=== PATIENT | female | born 1985 | race Hispanic/Latino ===

== ENCOUNTER 2016-07-15 15:50 | Emergency (ER) | payer MEDICAID ==
--- NOTE | 2016-07-15 16:56 | XRay Report ---
ROUTINE CHEST, TWO VIEWS: Shortness of breath. This is minimal atelectasis appearing density adjacent to the left cardiac margin. This is only seen in the frontal projection. The findings are not otherwise remarkable. Impression: Probable focal atelectasis lingular segment left upper lobe.
[2016-07-15 17:34] LABS: Anion Gap 17 mmol/L; BUN/Creatinine Ratio 12.85; Blood Urea Nitrogen 9 mg/dL (7-17); Calcium 9.5 mg/dL (8.4-10.2); Carbon Dioxide 24 mmol/L (22-30); Chloride 103.9 mmol/L (98-107); Glucose 115 mg/dL (65-100); Potassium 3.8 mmol/L (3.6-5.0); Sodium 141 mmol/L (137-145)
[2016-07-15 17:36] LABS: Hematocrit 40.7 % (30.3-42.9); Hemoglobin 13.4 gm/dl (10.1-14.3); Mean Corpuscular HGB Conc 33 % (30-34); Mean Corpuscular Hemoglobin 28 pg (28-32); Mean Corpuscular Volume 86 fl (79-97); Platelet Count 249 K/mm3 (140-440); Red Blood Count 4.74 M/mm3 (3.65-5.03); Red Cell Distribution Width 13.5 % (13.2-15.2); White Blood Count 11.6 K/mm3 (4.5-11.0)
[2016-07-15] MEDS ORDERED: DUONEB 0.5 MG-3 MG/3 ML SOLN IH ONE (23:48)
--- NOTE | 2016-07-15 23:53 | Emergency Department Report ---
HPI - General Chief Complaint: Chest Pain Time Seen by Provider: 07/15/16 23:32 - HPI HPI: This is a 31-year-old female who presents to the emergency department with a one-week history of intermittent generalized chest pain to the entire chest. It is associated with a mixed dry and productive cough, intermittent shortness of breath and some chills without diagnosed fever. The patient has been dealing with some of the symptoms for even longer as she was seen by her primary care doctor back on the , and then again a week later, and diagnosed with walking pneumonia. She was given an inhaler and Z-Kareem at that time but says she is not feeling any better. However the symptoms worsened over the past week. She has a past medical history of asthma and she is a tobacco smoker. She denies any illicit drug use. She is not taking anything currently for her symptoms prior to presentation. No recent travel or sick contacts at home. Her primary care doctor is Dr. Deirdre Lawrence at [facility]. ED Past Medical Hx - Past Medical History Hx GERD: Yes Hx Seizures: No Hx Psychiatric Treatment: Yes (DEPRESSION) Hx Asthma: Yes Additional medical history: H. pylori - Surgical History Hx Cholecystectomy: Yes Additional Surgical History: hemorrhoidectomy - Social History Smoking Status: Current Every Day Smoker Substance Use Type: Prescribed - Medications Home Medications: Home Medications Medication Instructions Recorded Confirmed Last Taken Type Loratadine [Claritin] 10 mg PO QDAY 05/17/13 10/03/14 05/30/13 History 10MG Nortriptyline [Pamelor] 75 mg PO QHS 05/17/13 10/03/14 05/30/13 History 75MG Acetaminophen/Codeine [Tylenol #3] 1 tab PO Q6H PRN #15 tab 10/04/14 Unknown Rx Tramadol HCl [traMADol] 50 mg PO Q8HR #15 tablet 10/04/14 Unknown Rx Albuterol Sulfate [Ventolin HFA] 2 puff IH Q4H PRN #1 hfa.aer.ad 07/16/16 Unknown Rx guaiFENesin/CODEINE [Robitussin AC] 5 ml PO Q6H PRN #80 ml 07/16/16 Unknown Rx ED Review of Systems ROS: Stated complaint: CHEST PAIN/OLIVIER Other details as noted in HPI Comment: All other systems reviewed and negative Constitutional: chills. denies: fever Eyes: denies: eye pain, eye discharge, vision change ENT: denies: ear pain, throat pain Respiratory: cough, shortness of breath Cardiovascular: chest pain. denies: palpitations, edema Gastrointestinal: denies: abdominal pain, nausea, diarrhea Genitourinary: denies: urgency, dysuria, discharge Musculoskeletal: denies: back pain, joint swelling, arthralgia Skin: denies: rash, lesions Neurological: denies: headache, weakness, paresthesias Physical Exam - Physical Exam Vital Signs: Vital Signs 07/15/16 16:15 Temperature 98.7 F Pulse Rate 102 H Respiratory 20 Rate Blood Pressure 133/84 O2 Sat by Pulse 99 Oximetry Physical Exam: GENERAL: The patient is well-developed well-nourished. HEENT: Normocephalic. Atraumatic. Extraocular motions are intact. Patient has moist mucous membranes. Pupils equal reactive to light bilaterally. NECK: Supple. Trachea is midline. CHEST/LUNGS: Mild expiratory wheezing throughout the chest. A productive any cough heard during examination. No tachypnea or accessory muscle use. There is no respiratory distress noted. HEART/CARDIOVASCULAR: Regular. There is no tachycardia. There is no gallop rub or murmur. ABDOMEN: Abdomen is soft, nontender. Patient has normal bowel sounds. There is no abdominal distention. SKIN: Skin is warm and dry. There is no edema. NEURO: The patient is awake, alert, and oriented. The patient is cooperative. The patient has no focal neurologic deficits. The patient has normal speech. MUSCULOSKELETAL: There is no tenderness or deformity. There is no limitation range of motion. There is no evidence of acute injury. ED Course Vital Signs 07/15/16 16:15 Temperature 98.7 F Pulse Rate 102 H Respiratory 20 Rate Blood Pressure 133/84 O2 Sat by Pulse 99 Oximetry ED Medical Decision Making - Lab Data Result diagrams: 07/15/16 17:00 07/15/16 17:00 - EKG Data -: EKG Interpreted by Me EKG shows normal: sinus rhythm, axis, intervals, QRS complexes (incomplete right bundle branch block), ST-T waves - EKG Data When compared to previous EKG there are: no significant change Interpretation: unchanged when compared t (02/23/14) - Radiology Data Radiology results: image reviewed interpreted by me: Chest x-ray did not show any acute process. Heart is normal shape and size. No effusions. No pneumothorax. No signs of pneumonia seen. - Medical Decision Making 31-year-old female presents the emergency department with about 2-3 weeks of cough and some chest discomfort. This is been going on even since the patient was diagnosed with walking pneumonia and for. She is already been on antibiotics and seen her primary care regarding it. Patient was evaluated today with physical exam, labs, imaging EKG. EKG does not show any signs of ST elevation IL, dysrhythmia or ischemia. Chest x-ray does not show any signs of pneumonia, pleural effusions or pneumothorax. Patient's labs show negative troponins 3 and a negative d-dimer. She was given a breathing treatment, a dose of Decadron and something for discomfort. Upon reevaluation she is feeling improved. Patient has a GIANNI score of 0-1. She is very low on the heart score. She appears low suspicion for coronary artery disease. She has good follow-up with primary care. She'll be discharged home with some Robitussin-AC for cough and a refill of her albuterol inhaler. She will return to the ER with any worsening of her symptoms or any acute distress. HEART Score for Major Cardiac Events from [email or web address] on 07/16/2016 All calculations should be rechecked by clinician prior to use RESULT SUMMARY: 0 points Low Score (0-3 points) Risk of MACE of 0.9-1.7%. INPUTS: History > Slightly suspicious EKG > Normal Age > < 45 Risk factors > No known risk factors Troponin > normal limit - Differential Diagnosis costochondritis, bronchitis, asthma, pneumonia, IL, PE Critical Care Time: No Critical care attestation.: If time is entered above; I have spent that time in minutes in the direct care of this critically ill patient, excluding procedure time. ED Disposition Clinical Impression: Bronchitis, Bronchospasm, Costochondritis Disposition: DISCHARGED TO HOME OR SELFCARE Is pt being admited?: No Condition: Stable Instructions: Acute Bronchitis (ED) Additional Instructions: Please follow-up with your primary care doctor in the next few days. Return to the emergency department with any worsening of your symptoms or any acute distress. You've been prescribed a medication that is sedating. Therefore this medication cannot be mixed with alcohol, or taken prior to driving, working, or being responsible for children. Prescriptions: Albuterol Sulfate [Ventolin HFA] 2 puff IH Q4H PRN #1 hfa.aer.ad PRN Reason: Shortness Of Breath guaiFENesin/CODEINE [Robitussin AC] 5 ml PO Q6H PRN #80 ml PRN Reason: Cough Referrals: PRIMARY CARE, [Primary Care Provider] - 3-5 Days Time of Disposition: 01:48
[2016-07-16] MEDS ORDERED: NORCO 5/325 PO ONE (00:44)
[2016-07-16 01:48] VITALS: BP 138/81
[2016-07-16] MEDS ORDERED: DECADRON PO ONE (01:48)
== END 2016-07-16 02:02 | disposition home or self-care (01) ==
LOC: ED 15:50
DX: J40 Bronchitis, not specified as acute or chronic (principal); J98.01 Acute bronchospasm; M94.0 Chondrocostal junction syndrome [Tietze]; K21.9 Gastro-esophageal reflux disease without esophagitis; F32.9 Major depressive disorder, single episode, unspecified; J45.909 Unspecified asthma, uncomplicated; F17.200 Nicotine dependence, unspecified, uncomplicated; Z88.0 Allergy status to penicillin
CPT/HCPCS: 36415; 71020; 80048; 84484; 84703; 85025; 85379; 93005; 93010; 99285; J8540

== ENCOUNTER 2018-10-09 15:40 | Emergency (ER) | payer MEDICAID ==
--- NOTE | 2018-10-09 15:54 | Event Note ---
ED Screening Note ED Screening Note: DYSURIA AND FOOT PAIN IN BOOT This initial assessment/diagnostic orders/clinical plan/treatment(s) is/are diez bject to change based on patients health status, clinical progression and re- assessment by fellow clinical providers in the ED. Further treatment and workup at subsequent clinical providers discretion. Patient/guardian urged not to elope from the ED as their condition may be serious if not clinically assessed and managed. Initial orders include:
[2018-10-09] MEDS ORDERED: TYLENOL #3 ONE (20:18)
[2018-10-09] MEDS ORDERED: TYLENOL #3 PO ONE (20:19)
--- NOTE | 2018-10-09 21:22 | XRay Report ---
PROCEDURE: XR FOOT 3+V RT TECHNIQUE: Right foot radiographs, AP, lateral, and oblique views. HISTORY: right lateral foot pain COMPARISONS: None . FINDINGS: Fracture (s) and/or Dislocation(s): None . Alignment: Normal . Joint space(s): Normal . Soft tissues: Normal . Bone mineralization: Normal . Foreign bodies: None . Calcaneal spurring: None . IMPRESSION: Normal Examination . This document is electronically signed by Mariangel Graham MD., October 09 2018 09:20:25 PM ET
[2018-10-09 21:28] LABS: HCG Qualitative,Urine Negative (Negative)
[2018-10-09 21:30] LABS: Bilirubin,Urine NEG (Negative); Blood,Urine SM (Negative); Color,Urine Yellow (Yellow); Mucus,Urine FEW /HPF; Protein,Urine <15 mg/dL mg/dL (Negative); Urobilinogen,Urine < 2.0 mg/dL (<2.0)
--- NOTE | 2018-10-09 22:16 | Emergency Department Report ---
ED Lower Extremity HPI - General Chief Complaint: Extremity Problem,Nontraumatic Stated Complaint: FOOT PAIN Time Seen by Provider: 10/09/18 15:54 Source: patient Mode of arrival: Ambulatory Limitations: No Limitations - History of Present Illness Initial Comments: 33-year-old female is metformin complaining of a 2 to three-week history of atraumatic right foot pain. She was initially evaluated at the [facility] and given Benjamin wrap, walking boot and some pain medication. She states this continued pain symptoms most department seeking further evaluation. She states that no x-rays were taken, so she wanted to make sure it was not broken MD Complaint: foot injury -: Gradual, week(s) (2) Injury: Foot: Right Place: home Severity: mild Improves With: nothing Worsens With: nothing Associated Symptoms: able to partially bear weight. denies: numbness, tingling - Related Data Home Medications Medication Instructions Recorded Confirmed Last Taken Loratadine [Claritin] 10 mg PO QDAY 05/17/13 10/03/14 05/30/13 10MG Nortriptyline (Nf) [Pamelor (Nf)] 75 mg PO QHS 05/17/13 10/03/14 05/30/13 75MG Previous Rx's Medication Instructions Recorded Last Taken Type Acetaminophen/Codeine [Tylenol #3] 1 tab PO Q6H PRN #15 tab 10/04/14 Unknown Rx Tramadol HCl [traMADol] 50 mg PO Q8HR #15 tablet 10/04/14 Unknown Rx Albuterol Sulfate [Ventolin HFA] 2 puff IH Q4H PRN #1 hfa.aer.ad 07/16/16 Unknown Rx guaiFENesin/CODEINE [Robitussin AC] 5 ml PO Q6H PRN #80 ml 07/16/16 Unknown Rx traMADol [Ultram] 50 mg PO Q6HR PRN #10 tablet 10/09/18 Unknown Rx Allergies Allergy/AdvReac Type Severity Reaction Status Date / Time Penicillins Allergy Rash Verified 10/09/18 20:34 ibuprofen [From Motrin] AdvReac Swelling Verified 10/09/18 20:33 ED Review of Systems ROS: Stated complaint: FOOT PAIN Other details as noted in HPI Constitutional: denies: chills, fever Eyes: denies: eye pain, eye discharge, vision change ENT: denies: ear pain, throat pain Respiratory: denies: cough, shortness of breath, wheezing Cardiovascular: denies: chest pain, palpitations Endocrine: no symptoms reported Gastrointestinal: denies: abdominal pain, nausea, diarrhea Genitourinary: denies: urgency, dysuria, discharge Musculoskeletal: denies: back pain, joint swelling, arthralgia Skin: denies: rash, lesions Neurological: denies: headache, weakness, paresthesias Psychiatric: denies: anxiety, depression Hematological/Lymphatic: denies: easy bleeding, easy bruising ED Past Medical Hx - Past Medical History Previous Medical History?: Yes Hx GERD: Yes Hx Seizures: No Hx Psychiatric Treatment: Yes (DEPRESSION) Hx Asthma: Yes Additional medical history: H. pylori - Surgical History Past Surgical History?: Yes Hx Cholecystectomy: Yes Additional Surgical History: hemorrhoidectomy - Social History Smoking Status: Current Every Day Smoker Substance Use Type: Prescribed - Medications Home Medications: Home Medications Medication Instructions Recorded Confirmed Last Taken Type Loratadine [Claritin] 10 mg PO QDAY 05/17/13 10/03/14 05/30/13 History 10MG Nortriptyline (Nf) [Pamelor (Nf)] 75 mg PO QHS 05/17/13 10/03/14 05/30/13 History 75MG Acetaminophen/Codeine [Tylenol #3] 1 tab PO Q6H PRN #15 tab 10/04/14 Unknown Rx Tramadol HCl [traMADol] 50 mg PO Q8HR #15 tablet 10/04/14 Unknown Rx Albuterol Sulfate [Ventolin HFA] 2 puff IH Q4H PRN #1 hfa.aer.ad 07/16/16 Unknown Rx guaiFENesin/CODEINE [Robitussin AC] 5 ml PO Q6H PRN #80 ml 07/16/16 Unknown Rx traMADol [Ultram] 50 mg PO Q6HR PRN #10 tablet 10/09/18 Unknown Rx ED Physical Exam - General Limitations: No Limitations General appearance: alert, in no apparent distress - Head Head exam: Present: atraumatic, normocephalic - Eye Eye exam: Present: normal appearance, PERRL, EOMI Pupils: Present: normal accommodation - ENT ENT exam: Present: mucous membranes moist - Neck Neck exam: Present: normal inspection - Respiratory Respiratory exam: Present: normal lung sounds bilaterally. Absent: respiratory distress - Cardiovascular Cardiovascular Exam: Present: regular rate, normal rhythm. Absent: systolic murmur, diastolic murmur, rubs, gallop - GI/Abdominal GI/Abdominal exam: Present: soft, normal bowel sounds - Extremities Exam Extremities exam: Present: normal inspection - Back Exam Back exam: Present: normal inspection - Neurological Exam Neurological exam: Present: alert, oriented X3 - Psychiatric Psychiatric exam: Present: normal affect, normal mood - Skin Skin exam: Present: warm, dry, intact, normal color. Absent: rash ED Lower Extremity MDM - Radiology Data Radiology results: report reviewed (no acute processes) - Medical Decision Making 33-year-old female with continued right foot pain for over 3 weeks despite utilization of a walking boot and Benjamin wrap. No significant findings today. X-r ays were negative. Advised patient the need to utilize ice and anti- inflammatory as she can tolerate oral recovery and also Monday of the foot. No excessive walking. She has been doing with the walking. Also advised of the need to follow with podiatry for further evaluation and treatment options. This is most likely soft tissue related injury Critical care attestation.: If time is entered above; I have spent that time in minutes in the direct care of this critically ill patient, excluding procedure time. ED Disposition Clinical Impression: Foot pain, right Disposition: DC-01 TO HOME OR SELFCARE Is pt being admited?: No Does the pt Need Aspirin: No Condition: Stable Instructions: Foot Sprain (ED) Referrals: SELWYN CHENG MD [Primary Care Provider] - 3-5 Days
[2018-10-09 22:50] VITALS: BP 135/65
== END 2018-10-09 22:50 | disposition home or self-care (01) ==
LOC: ED 15:40
DX: M79.671 Pain in right foot (principal); K21.9 Gastro-esophageal reflux disease without esophagitis; J45.909 Unspecified asthma, uncomplicated; F17.200 Nicotine dependence, unspecified, uncomplicated; Z90.49 Acquired absence of other specified parts of digestive tract; Z98.890 Other specified postprocedural states; Z88.0 Allergy status to penicillin; Z88.5 Allergy status to narcotic agent; Z79.899 Other long term (current) drug therapy; W22.8XXA Striking against or struck by other objects, initial encounter; Y93.01 Activity, walking, marching and hiking; Y92.098 Other place in other non-institutional residence as the place of occurrence of the external cause; Y99.8 Other external cause status
CPT/HCPCS: 81001; 81025; 99283

== ENCOUNTER 2019-01-30 20:28 | Emergency (ER) | payer MEDICAID ==
[2019-01-30 20:59] VITALS: BP 133/84
--- NOTE | 2019-01-30 21:34 | Emergency Department Report ---
ED ENT HPI - General Chief complaint: Dental/Oral Stated complaint: TOOTHACHE Time Seen by Provider: 01/30/19 21:25 Source: patient Mode of arrival: Ambulatory Limitations: No Limitations - History of Present Illness Initial comments: This is a 33-year-old female nontoxic well in appearance with no signs of distress presents to the ED with complaint of toothache. Patient denies any facial swelling. Denies following up with a dentist. Denies any fever, chills, headache, nausea, vomiting, chest pain or SOB. Denies any other complaints. Denies any allergies. MD complaint: tooth pain -: days(s) Location: tooth # 1 - pain here Severity: mild Quality: aching Consistency: constant Improves with: none Worsens with: none Context- Dental: history of dental caries Associated Symptoms: gum swelling, toothache. denies: fever, cough, pain with swallowing, sore throat, tinnitus, hearing loss, discharge from ear, rhinorrhea - Related Data Home Medications Medication Instructions Recorded Confirmed Last Taken Loratadine [Claritin] 10 mg PO QDAY 05/17/13 10/03/14 05/30/13 10 MG Nortriptyline (Nf) [Pamelor (Nf)] 75 mg PO QHS 05/17/13 10/03/14 05/30/13 75 MG Previous Rx's Medication Instructions Recorded Last Taken Type Acetaminophen/Codeine [Tylenol #3] 1 tab PO Q6H PRN #15 tab 10/04/14 Unknown Rx Tramadol HCl [traMADol] 50 mg PO Q8HR #15 tablet 10/04/14 Unknown Rx Albuterol Sulfate [Ventolin HFA] 2 puff IH Q4H PRN #1 hfa.aer.ad 07/16/16 Unknown Rx guaiFENesin/CODEINE [Robitussin AC] 5 ml PO Q6H PRN #80 ml 07/16/16 Unknown Rx traMADol [Ultram] 50 mg PO Q6HR PRN #10 tablet 10/09/18 Unknown Rx Acetaminophen [Tylenol] 650 mg PO Q8H PRN #10 capsule 01/30/19 Unknown Rx Chlorhexidine Mouthwash [Peridex] 15 ml MM BID #1 bottle 01/30/19 Unknown Rx Clindamycin [Clindamycin CAP] 300 mg PO Q8H #21 cap 01/30/19 Unknown Rx Allergies Allergy/AdvReac Type Severity Reaction Status Date / Time Penicillins Allergy Rash Verified 10/09/18 20:34 ibuprofen [From Motrin] AdvReac Swelling Verified 10/09/18 20:33 ED Dental HPI - General Chief complaint: Dental/Oral Stated complaint: TOOTHACHE Time Seen by Provider: 01/30/19 21:25 Source: patient Mode of arrival: Ambulatory Limitations: No Limitations - Related Data Home Medications Medication Instructions Recorded Confirmed Last Taken Loratadine [Claritin] 10 mg PO QDAY 05/17/13 10/03/14 05/30/13 10 MG Nortriptyline (Nf) [Pamelor (Nf)] 75 mg PO QHS 05/17/13 10/03/14 05/30/13 75 MG Previous Rx's Medication Instructions Recorded Last Taken Type Acetaminophen/Codeine [Tylenol #3] 1 tab PO Q6H PRN #15 tab 10/04/14 Unknown Rx Tramadol HCl [traMADol] 50 mg PO Q8HR #15 tablet 10/04/14 Unknown Rx Albuterol Sulfate [Ventolin HFA] 2 puff IH Q4H PRN #1 hfa.aer.ad 07/16/16 Unknown Rx guaiFENesin/CODEINE [Robitussin AC] 5 ml PO Q6H PRN #80 ml 07/16/16 Unknown Rx traMADol [Ultram] 50 mg PO Q6HR PRN #10 tablet 10/09/18 Unknown Rx Acetaminophen [Tylenol] 650 mg PO Q8H PRN #10 capsule 01/30/19 Unknown Rx Chlorhexidine Mouthwash [Peridex] 15 ml MM BID #1 bottle 01/30/19 Unknown Rx Clindamycin [Clindamycin CAP] 300 mg PO Q8H #21 cap 01/30/19 Unknown Rx Allergies Allergy/AdvReac Type Severity Reaction Status Date / Time Penicillins Allergy Rash Verified 10/09/18 20:34 ibuprofen [From Motrin] AdvReac Swelling Verified 10/09/18 20:33 ED Review of Systems ROS: Stated complaint: TOOTHACHE Other details as noted in HPI Constitutional: denies: chills, fever Eyes: denies: eye pain, eye discharge, vision change ENT: dental pain. denies: ear pain, throat pain Respiratory: denies: cough, shortness of breath, wheezing Cardiovascular: denies: chest pain, palpitations Endocrine: no symptoms reported Gastrointestinal: denies: abdominal pain, nausea, diarrhea Genitourinary: denies: urgency, dysuria, discharge Musculoskeletal: denies: back pain, joint swelling, arthralgia Skin: denies: rash, lesions Neurological: denies: headache, weakness, paresthesias Psychiatric: denies: anxiety, depression Hematological/Lymphatic: denies: easy bleeding, easy bruising ED Past Medical Hx - Past Medical History Previous Medical History?: Yes Hx GERD: Yes Hx Seizures: No Hx Psychiatric Treatment: Yes (DEPRESSION) Hx Asthma: Yes Additional medical history: H. pylori - Surgical History Past Surgical History?: Yes Hx Cholecystectomy: Yes Additional Surgical History: hemorrhoidectomy - Social History Smoking Status: Never Smoker Substance Use Type: None - Medications Home Medications: Home Medications Medication Instructions Recorded Confirmed Last Taken Type Loratadine [Claritin] 10 mg PO QDAY 05/17/13 10/03/14 05/30/13 History 10 MG Nortriptyline (Nf) [Pamelor (Nf)] 75 mg PO QHS 05/17/13 10/03/14 05/30/13 History 75 MG Acetaminophen/Codeine [Tylenol #3] 1 tab PO Q6H PRN #15 tab 10/04/14 Unknown Rx Tramadol HCl [traMADol] 50 mg PO Q8HR #15 tablet 10/04/14 Unknown Rx Albuterol Sulfate [Ventolin HFA] 2 puff IH Q4H PRN #1 hfa.aer.ad 07/16/16 Unknown Rx guaiFENesin/CODEINE [Robitussin AC] 5 ml PO Q6H PRN #80 ml 07/16/16 Unknown Rx traMADol [Ultram] 50 mg PO Q6HR PRN #10 tablet 10/09/18 Unknown Rx Acetaminophen [Tylenol] 650 mg PO Q8H PRN #10 capsule 01/30/19 Unknown Rx Chlorhexidine Mouthwash [Peridex] 15 ml MM BID #1 bottle 01/30/19 Unknown Rx Clindamycin [Clindamycin CAP] 300 mg PO Q8H #21 cap 01/30/19 Unknown Rx ED Physical Exam - General Limitations: No Limitations General appearance: alert, in no apparent distress - Head Head exam: Present: atraumatic, normocephalic - Expanded ENT Exam Expanded Ear exam: Present: normal external inspection Mouth exam: Present: normal external inspection. Absent: drooling, trismus, muffled voice Teeth exam: Present: dental caries, fractured tooth #, dental tenderness #, gingival enlargement, other (uvula midline. no abscess. no swleling.) Throat exam: Positive: normal inspection - Neck Neck exam: Present: normal inspection, full ROM. Absent: tenderness, meningismus, lymphadenopathy - Extremities Exam Extremities exam: Present: full ROM - Back Exam Back exam: Present: full ROM - Neurological Exam Neurological exam: Present: alert, oriented X3, normal gait - Psychiatric Psychiatric exam: Present: normal affect, normal mood - Skin Skin exam: Present: warm, dry, intact, normal color. Absent: rash ED Course Vital Signs 01/30/19 20:56 Temperature 98.3 F Pulse Rate 75 Respiratory 16 Rate Blood Pressure 133/84 O2 Sat by Pulse 99 Oximetry - Reevaluation(s) Reevaluation #1: 01/30/19 21:31 Patient is speaking in full sentences with no signs of distress noted. ED Medical Decision Making - Medical Decision Making Patient was instructed to Follow-up with a dentist doctor in 3-5 days or if symptoms worsen and continue return to emergency room as soon as possible. At time of discharge, the patient does not seem toxic or ill in appearance. No acute signs of distress noted. Patient agrees to discharge treatment plan of care. No further questions noted by the patient. Critical care attestation.: If time is entered above; I have spent that time in minutes in the direct care of this critically ill patient, excluding procedure time. ED Disposition Clinical Impression: Dental caries, Gingivitis Disposition: - TO HOME OR SELFCARE Is pt being admited?: No Does the pt Need Aspirin: No Condition: Stable Instructions: Dental Caries (ED), Gingivitis (ED) Additional Instructions: Follow-up with a dentist doctor in 3-5 days or if symptoms worsen and continue return to emergency room as soon as possible. Prescriptions: Clindamycin [Clindamycin CAP] 300 mg PO Q8H #21 cap Chlorhexidine Mouthwash [Peridex] 15 ml MM BID #1 bottle Acetaminophen [Tylenol] 650 mg PO Q8H PRN #10 capsule PRN Reason: Pain , Severe (7-10) Referrals: PRIMARY CAREMD [Referring] - 3-5 Days JULIO LOCKETT MD [Staff Physician] - 3-5 Days [facility] [Outside] - 3-5 Days
== END 2019-01-30 21:39 | disposition home or self-care (01) ==
LOC: ED 20:28
DX: K02.9 Dental caries, unspecified (principal); K05.10 Chronic gingivitis, plaque induced; K21.9 Gastro-esophageal reflux disease without esophagitis; F32.9 Major depressive disorder, single episode, unspecified; J45.909 Unspecified asthma, uncomplicated; Z90.49 Acquired absence of other specified parts of digestive tract; Z98.890 Other specified postprocedural states; Z79.899 Other long term (current) drug therapy; Z88.0 Allergy status to penicillin; Z88.6 Allergy status to analgesic agent

== ENCOUNTER 2019-03-15 17:13 | Emergency (ER) | payer MEDICAID ==
[2019-03-15 17:31] VITALS: BP 112/82
--- NOTE | 2019-03-15 18:30 | XRay Report ---
CHEST 2 VIEWS INDICATION / CLINICAL INFORMATION: SOB/Productive Cough. COMPARISON: 07/15/2016. FINDINGS: SUPPORT DEVICES: None. HEART / MEDIASTINUM: No significant abnormality. LUNGS / PLEURA: No significant pulmonary or pleural abnormality. No pneumothorax. ADDITIONAL FINDINGS: No significant additional findings. IMPRESSION: 1. No acute findings. Signer Name: Lake Maria MD Signed: 03/15/2019 6:26 PM Workstation Name: [id number]
--- NOTE | 2019-03-15 19:33 | Emergency Department Report ---
Minor Respiratory - HPI Chief Complaint: Upper Respiratory Infection Stated Complaint: OLIVIER/COUGH Time Seen by Provider: 03/15/19 19:24 Duration: 10 Pain Location: Ear Severity: mild (4/10) Minor Respiratory: Yes Rhinorrhea, Yes Able to Tolerate Fluids, Yes Ear Pain (4/10), Yes Cough (wheezing), Yes Sick Contacts, No Sore Throat, No Hemoptysis, No Chest Pain, No Shortness of Breath, No Fever Other History: This is a 33-year-old female here with her child reported that about 10 days ago she started having runny nose clogged ear with ear pain and nasal congestion watery eye and coughing and it progressed into wheezing and chest congestion and cough worse then. She denies any fever and has a history of asthma and takes albuterol. She denies any nausea or vomiting. Denies any shortness of breath or chest pain. Denies sore throat but reports earache for a 10. She says she has been taking her albuterol and [id number] cough and c old medication without any relief. ED Review of Systems ROS: Stated complaint: OLIVIER/COUGH Other details as noted in HPI Constitutional: denies: chills, fever ENT: ear pain, congestion. denies: throat pain, dental pain Respiratory: cough, wheezing. denies: shortness of breath, SOB with exertion, SOB at rest, stridor Cardiovascular: denies: chest pain, dyspnea on exertion, orthopnea Gastrointestinal: denies: nausea, vomiting Musculoskeletal: denies: back pain Skin: denies: rash Neurological: headache (mild headache on and off that is located frontally. She denies any headache at present) ED Past Medical Hx - Past Medical History Previous Medical History?: Yes Hx GERD: Yes Hx Seizures: No Hx Psychiatric Treatment: Yes (DEPRESSION) Hx Asthma: Yes Additional medical history: H. pylori - Surgical History Past Surgical History?: Yes Hx Cholecystectomy: Yes Additional Surgical History: hemorrhoidectomy - Family History Family history: asthma, hypertension - Social History Smoking Status: Current Some Day Smoker Substance Use Type: None - Medications Home Medications: Home Medications Medication Instructions Recorded Confirmed Last Taken Type Loratadine [Claritin] 10 mg PO QDAY 05/17/13 10/03/14 05/30/13 History 10 MG Nortriptyline (Nf) [Pamelor (Nf)] 75 mg PO QHS 05/17/13 10/03/14 05/30/13 History 75 MG Acetaminophen/Codeine [Tylenol #3] 1 tab PO Q6H PRN #15 tab 10/04/14 Unknown Rx Tramadol HCl [traMADol] 50 mg PO Q8HR #15 tablet 10/04/14 Unknown Rx Albuterol Sulfate [Ventolin HFA] 2 puff IH Q4H PRN #1 hfa.aer.ad 07/16/16 Unknown Rx traMADoL [Ultram] 50 mg PO Q6HR PRN #10 tablet 10/09/18 Unknown Rx Acetaminophen [Tylenol] 650 mg PO Q8H PRN #10 capsule 01/30/19 Unknown Rx Chlorhexidine Mouthwash [Peridex] 15 ml MM BID #1 bottle 01/30/19 Unknown Rx Clindamycin [Clindamycin CAP] 300 mg PO Q8H #21 cap 01/30/19 Unknown Rx Azithromycin [Zithromax Z-KAREEM] 250 mg PO DAILY 5 Days #6 tab 03/15/19 Unknown Rx Cetirizine HCl [Zyrtec 10mg tab] 10 mg PO DAILY 10 Days #10 tablet 03/15/19 Unknown Rx Inhaler, Assist Devices [Space 1 each MC ONCE PRN #1 spacer 03/15/19 Unknown Rx Chamber Plus] Prednisone [predniSONE 10 mg 10 mg PO .TAPER #1 tab.ds.pk 03/15/19 Unknown Rx (6-Day Pack, 21 Tabs)] guaiFENesin/CODEINE [Robitussin AC] 5 ml PO QHS PRN #50 ml 03/15/19 Unknown Rx Minor Respiratory Exam - Exam General: Vital signs noted. No distress. Alert and acting appropriately. This is a 33-year-old female well-nourished well-developed in no acute distress. HEENT: Yes Moist Mucous Membranes, Yes Rhinorrhea (nasal mucosa congested with erythema), No Pharyngeal Erythema, No Pharyngeal Exudates, No Conjuctival Injection, No Frontal Tenderness, No Maxillary Tenderness Ear: Neither TM Bulge (middle ear effusion), Neither TM Erythema, Neither EAC Pain, Neither EAC Discharge Neck: Yes Supple (full range of motion), No Adenopathy Lungs: Yes Wheezes, Yes Cough (dry cough), No Good Air Exchange, No Ronchi, No Stridor, No Labored Respirations, No Retractions, No Use of Accessory Muscles Heart: Yes Regular (tachycardic), No Murmur Abdomen: Yes Normal Bowel Sounds (normal bowel sounds), No Tenderness, No Peritoneal Signs Skin: No Rash, No Edema Neurologic: Alert and oriented, no deficits. Musculoskeletal: Unremarkable. ED Course Vital Signs 03/15/19 17:27 Temperature 98.3 F Pulse Rate 118 H Respiratory 20 Rate Blood Pressure 112/82 O2 Sat by Pulse 96 Oximetry Vital Signs 03/15/19 03/15/19 17:27 19:42 Temperature 98.3 F Pulse Rate 118 H 92 H Respiratory 20 Rate Blood Pressure 112/82 O2 Sat by Pulse 96 Oximetry - Reevaluation(s) Reevaluation #1: 03/15/19 19:51 Patient received Deltasone 50 mg by mouth, Atrovent 0.5 mg and Xopenex 0.63 mg nebulizer treatment in emergency room. Chest x-ray is stable. We will reassess after treatment Reevaluation #2: 03/15/19 20:53 Status post nebulizer treatment and lung sounds are clear patient says she feels better. She received her Deltasone. Heart rate is at 92 and she is in no acute distress and requested a spacer to use her albuterol inhaler. ED Medical Decision Making - Radiology Data Radiology results: report reviewed Chest x-ray dictated by radiologist and report reviewed by myself. Please see details below Findings [address] [address] XRay Report Signed Patient: LISA FREIRE MR#: [id number] : 1985 Acct:[id number] Age/Sex: 33 / F ADM Date: 03/15/19 Loc: ED Attending Dr: Ordering Physician: WAYNE LEMONS PA-C Date of Service: 03/15/19 Procedure(s): XR chest routine 2V Accession Number(s): [id number] cc: WAYNE LEMONS PA-C Fluoro Time In Minutes: CHEST 2 VIEWS INDICATION / CLINICAL INFORMATION: SOB/Productive Cough. COMPARISON: 07/15/2016. FINDINGS: SUPPORT DEVICES: None. HEART / MEDIASTINUM: No significant abnormality. LUNGS / PLEURA: No significant pulmonary or pleural abnormality. No pneumothorax. ADDITIONAL FINDINGS: No significant additional findings. IMPRESSION: 1. No acute findings. Signer Name: Lake Maria MD Signed: 03/15/2019 6:26 PM Workstation Name: [id number] Transcribed By: JENNY Dictated By: Lake Maria MD Electronically Authenticated By: Lake Maria MD Signed Date/Time: 03/15/191825 DD/ 25 TD/TT: - Medical Decision Making 33-year-old patient here for upper respiratory cough and congestion. She has a history of asthma and had rhinitis that preceded her cough and wheezing. She was given nebulizer treatment along with steroid and emergency room and after reevaluation she felt better. Heart rate was tachycardic at 118 but better now. Her other vital signs are stable. Patient is stable and in no acute distress. Discharged home with prescription for Z-Kareem, codeine cough syrup, and Zyrtec and prednisone Dosepak for upper respiratory with cough and congestion. I did not feel the patient was having an asthma attack upon assessment. She had minimal wheezing to her lungs due to postnasal drip otherwise she has been stable and her lung sounds were clear post-nebulizer treatment. Patient to follow up with her primary care physician and 2-3 days and I told her if she does not have one to follow-up with [facility]. Surgical with her family in stable condition and in no acute distress. - Differential Diagnosis PNA, bronchitis, acute asthma exacerbation, URI with cough and congestion, Critical care attestation.: If time is entered above; I have spent that time in minutes in the direct care of this critically ill patient, excluding procedure time. ED Disposition Clinical Impression: URI with cough and congestion Disposition: DC-01 TO HOME OR SELFCARE Is pt being admited?: No Does the pt Need Aspirin: No Condition: Stable Instructions: Upper Respiratory Infection (ED), Acute Cough (ED) Additional Instructions: Please follow up with a primary care physician in 2-3 days and if he do not have a primary care physician follow-up at [facility]. Turned to the emergency room if your condition worsens Take medication as prescribed and please do not drive or operate heavy machinery taking codeine cough syrup as this causes drowsiness Use your albuterol nebulizer with spacer for maximum effect. Prescriptions: guaiFENesin/CODEINE [Robitussin AC] 5 ml PO QHS PRN #50 ml PRN Reason: Cough Prednisone [predniSONE 10 mg (6-Day Pack, 21 Tabs)] 10 mg PO .TAPER #1 tab.ds.pk Inhaler, Assist Devices [Space Chamber Plus] 1 each MC ONCE PRN #1 spacer PRN Reason: cough and wheezing Azithromycin [Zithromax Z-KAREEM] 250 mg PO DAILY 5 Days #6 tab Cetirizine HCl [Zyrtec 10mg tab] 10 mg PO DAILY 10 Days #10 tablet Referrals: [facility] [Outside] - 2-3 Days Forms: Work/School Release Form(ED), Accompanied Note
[2019-03-15] MEDS ORDERED: LEVALBUTEROL 0.63 MG/3 ML NEBU IH ONE (19:34)
[2019-03-15] MEDS ORDERED: predniSONE 20 MG TAB PO ONE (19:34)
[2019-03-15] MEDS ORDERED: IPRATROPIUM 0.02% NEBU 2.5 ML IH ONE (19:34)
== END 2019-03-15 21:20 | disposition home or self-care (01) ==
LOC: ED 17:13
DX: J06.9 Acute upper respiratory infection, unspecified (principal); K21.9 Gastro-esophageal reflux disease without esophagitis; F32.9 Major depressive disorder, single episode, unspecified; J45.909 Unspecified asthma, uncomplicated; F17.200 Nicotine dependence, unspecified, uncomplicated
CPT/HCPCS: 71046; 94640; 99283; J7512; 94644

== ENCOUNTER 2019-05-01 13:40 | Emergency (ER) | payer MEDICAID ==
[2019-05-01 14:06] VITALS: BP 152/79
--- NOTE | 2019-05-01 15:21 | Emergency Department Report ---
Blank Doc - Documentation Documentation: 33-year-old female that presents with fever, tachycardia, URI symptoms. This initial assessment/diagnostic orders/clinical plan/treatment(s) is/are subject to change based on patient's health status, clinical progression and re- assessment by fellow clinical providers in the ED. Further treatment and workup at subsequent clinical providers discretion. Patient/guardians urged not to elope from the ED as their condition may be serious if not clinically assessed and managed. Initial orders include: 1- Patient sent to [facility] for further evaluation and treatment 2- CXR
--- NOTE | 2019-05-01 16:02 | XRay Report ---
CHEST PA AND LATERAL VIEWS INDICATION: cough. COMPARISON: 03/15/2019 FINDINGS: Support devices: None Heart: Normal and unchanged. Incidentally noted is prominent left pericardial fat pad. Lungs/Pleura: No acute pulmonary or pleural findings. IMPRESSION: 1. No active disease and no interval change. Signer Name: Aries Jackson MD Signed: 05/01/2019 3:58 PM Workstation Name: [id number]
--- NOTE | 2019-05-01 16:26 | Emergency Department Report ---
- General Chief Complaint: Upper Respiratory Infection Stated Complaint: SICK/COLD SX Time Seen by Provider: 05/01/19 15:20 Source: patient Mode of arrival: Ambulatory Limitations: No Limitations - History of Present Illness Initial Comments: Patient is a 33-year-old female who is presenting for days of cough and high fever. MAXIMUM TEMPERATURE is 102. Patient's cough is productive of yellow sputum. Patient's had some mild body aches. Last 4 days patient vomited approximate 4 times. She is able to keep most things down but sometimes she'll cough and then vomit. She denies diarrhea. Patient's had some mild body aches as well has a runny nose. Associated Symptoms: fever, chills, myalgias, diaphoresis, headache, rhinorrhea, nasal congestion, cough, shortness of breath, vomiting. denies: sore throat, stiff neck, chest pain, abdominal pain, nausea, diarrhea, dysuria, confusion, right sweats, weight loss - Related Data Home Medications Medication Instructions Recorded Confirmed Last Taken Loratadine (Nf) [Claritin (Nf)] 10 mg PO QDAY 05/17/13 10/03/14 05/30/13 10 MG Nortriptyline (Nf) [Pamelor (Nf)] 75 mg PO QHS 05/17/13 10/03/14 05/30/13 75 MG Previous Rx's Medication Instructions Recorded Last Taken Type Acetaminophen/Codeine [Tylenol #3] 1 tab PO Q6H PRN #15 tab 10/04/14 Unknown Rx Tramadol HCl [traMADol] 50 mg PO Q8HR #15 tablet 10/04/14 Unknown Rx Albuterol Sulfate [Ventolin HFA] 2 puff IH Q4H PRN #1 hfa.aer.ad 07/16/16 Unkno wn Rx traMADoL [Ultram] 50 mg PO Q6HR PRN #10 tablet 10/09/18 Unknown Rx Acetaminophen [Tylenol] 650 mg PO Q8H PRN #10 capsule 01/30/19 Unknown Rx Chlorhexidine Mouthwash [Peridex] 15 ml MM BID #1 bottle 01/30/19 Unknown Rx Clindamycin [Clindamycin CAP] 300 mg PO Q8H #21 cap 01/30/19 Unknown Rx Azithromycin [Zithromax Z-DENNYS] 250 mg PO DAILY 5 Days #6 tab 03/15/19 Unknown Rx Cetirizine HCl [Zyrtec 10mg tab] 10 mg PO DAILY 10 Days #10 tablet 03/15/19 Unknown Rx Inhaler, Assist Devices [Space 1 each MC ONCE PRN #1 spacer 03/15/19 Unknown Rx Chamber Plus] Prednisone [predniSONE 10 mg 10 mg PO .TAPER #1 tab.ds.pk 03/15/19 Unknown Rx (6-Day Pack, 21 Tabs)] guaiFENesin/CODEINE [Robitussin AC] 5 ml PO QHS PRN #50 ml 03/15/19 Unknown Rx Albuterol INH(or & Nicu Only) 2 puff IH QID PRN #1 inhalation 05/01/19 Unknown Rx [ProAir HFA Inhaler] DOXYCYCLINE Hyclate [Vibramycin 100 mg PO Q12HR #14 capsule 05/01/19 Unknown Rx CAP] guaiFENesin/CODEINE [Robitussin AC] 5 ml PO Q6HR PRN #100 oral.liqd 05/01/19 Unknown Rx predniSONE [Deltasone] 20 mg PO QDAY #5 tab 05/01/19 Unknown Rx Allergies Allergy/AdvReac Type Severity Reaction Status Date / Time Penicillins Allergy Rash Verified 05/01/19 15:22 Sulfa (Sulfonamide Allergy Rash Verified 05/01/19 15:22 Antibiotics) ibuprofen [From Motrin] AdvReac Swelling Verified 05/01/19 15:22 ED Review of Systems ROS: Stated complaint: SICK/COLD SX Other details as noted in HPI Comment: All other systems reviewed and negative ED Past Medical Hx - Past Medical History Previous Medical History?: Yes Hx GERD: Yes Hx Seizures: No Hx Psychiatric Treatment: Yes (DEPRESSION) Hx Asthma: Yes Additional medical history: H. pylori - Surgical History Past Surgical History?: Yes Hx Cholecystectomy: Yes Additional Surgical History: hemorrhoidectomy - Social History Smoking Status: Current Every Day Smoker Substance Use Type: None - Medications Home Medications: Home Medications Medication Instructions Recorded Confirmed Last Taken Type Loratadine (Nf) [Claritin (Nf)] 10 mg PO QDAY 05/17/13 10/03/14 05/30/13 History 10 MG Nortriptyline (Nf) [Pamelor (Nf)] 75 mg PO QHS 05/17/13 10/03/14 05/30/13 History 75 MG Acetaminophen/Codeine [Tylenol #3] 1 tab PO Q6H PRN #15 tab 10/04/14 Unknown Rx Tramadol HCl [traMADol] 50 mg PO Q8HR #15 tablet 10/04/14 Unknown Rx Albuterol Sulfate [Ventolin HFA] 2 puff IH Q4H PRN #1 hfa.aer.ad 07/16/16 Unknown Rx traMADoL [Ultram] 50 mg PO Q6HR PRN #10 tablet 10/09/18 Unknown Rx Acetaminophen [Tylenol] 650 mg PO Q8H PRN #10 capsule 01/30/19 Unknown Rx Chlorhexidine Mouthwash [Peridex] 15 ml MM BID #1 bottle 01/30/19 Unknown Rx Clindamycin [Clindamycin CAP] 300 mg PO Q8H #21 cap 01/30/19 Unknown Rx Azithromycin [Zithromax Z-DENNYS] 250 mg PO DAILY 5 Days #6 tab 03/15/19 Unknown Rx Cetirizine HCl [Zyrtec 10mg tab] 10 mg PO DAILY 10 Days #10 tablet 03/15/19 Unknown Rx Inhaler, Assist Devices [Space 1 each MC ONCE PRN #1 spacer 03/15/19 Unknown Rx Chamber Plus] Prednisone [predniSONE 10 mg 10 mg PO .TAPER #1 tab.ds.pk 03/15/19 Unknown Rx (6-Day Pack, 21 Tabs)] guaiFENesin/CODEINE [Robitussin AC] 5 ml PO QHS PRN #50 ml 03/15/19 Unknown Rx Albuterol INH(or & Nicu Only) 2 puff IH QID PRN #1 inhalation 05/01/19 Unknown Rx [ProAir HFA Inhaler] DOXYCYCLINE Hyclate [Vibramycin 100 mg PO Q12HR #14 capsule 05/01/19 Unknown Rx CAP] guaiFENesin/CODEINE [Robitussin AC] 5 ml PO Q6HR PRN #100 oral.liqd 05/01/19 Unknown Rx predniSONE [Deltasone] 20 mg PO QDAY #5 tab 05/01/19 Unknown Rx ED Physical Exam - General Limitations: No Limitations General appearance: alert, in no apparent distress - Head Head exam: Present: atraumatic, normocephalic - Eye Eye exam: Present: normal appearance - ENT ENT exam: Present: normal orophraynx, mucous membranes moist - Neck Neck exam: Present: normal inspection - Respiratory Respiratory exam: Present: normal lung sounds bilaterally. Absent: respiratory distress, wheezes, rales, rhonchi - Cardiovascular Cardiovascular Exam: Present: normal rhythm, tachycardia. Absent: systolic murmur, diastolic murmur, rubs, gallop - GI/Abdominal GI/Abdominal exam: Present: soft, normal bowel sounds. Absent: distended, tenderness, guarding, rebound - Extremities Exam Extremities exam: Present: normal inspection - Back Exam Back exam: Present: normal inspection - Neurological Exam Neurological exam: Present: alert, oriented X3 - Psychiatric Psychiatric exam: Present: normal affect, normal mood - Skin Skin exam: Present: warm, dry, intact, normal color. Absent: rash ED Course Vital Signs 05/01/19 13:59 Temperature 97.6 F Pulse Rate 112 H Respiratory 16 Rate Blood Pressure 152/79 O2 Sat by Pulse 97 Oximetry ED Medical Decision Making - Radiology Data Radiology results: image reviewed (per my interpretation of chest x-ray there is a infiltrate in the left lower lobe.) - Medical Decision Making Patient is 33-year-old female who is presenting with productive cough and high fever. Chest x-ray does show an infiltrate in the left lower lobe. The differential is infiltrate include a pericardial fat pad as well as pneumonia. Given the patient's high fever and symptoms of pneumonia is most likely. I also did not see this prominent of a infiltrate on previous x-rays. Patient will be started on antibiotics and be discharged home. Patient's O2 sat is within normal limits and she has good care for outpatient therapy. Critical care attestation.: If time is entered above; I have spent that time in minutes in the direct care of this critically ill patient, excluding procedure time. ED Disposition Clinical Impression: Pneumonia Qualifiers: Pneumonia type: due to unspecified organism Laterality: left Lung location: lower lobe of lung Qualified Code(s): J18.9 - Pneumonia, unspecified organism Disposition: TO HOME OR SELFCARE Is pt being admited?: Yes Does the pt Need Aspirin: No Condition: Stable Instructions: Bacterial Pneumonia (ED) Referrals: ROBIN NAVARRO MD [Referring] - 3-5 Days Time of Disposition: 16:26
== END 2019-05-01 17:00 | disposition home or self-care (01) ==
LOC: ED 13:40
DX: J18.9 Pneumonia, unspecified organism (principal); K21.9 Gastro-esophageal reflux disease without esophagitis; J45.909 Unspecified asthma, uncomplicated; Z90.49 Acquired absence of other specified parts of digestive tract; Z98.890 Other specified postprocedural states; Z79.899 Other long term (current) drug therapy; Z88.0 Allergy status to penicillin; Z88.2 Allergy status to sulfonamides; Z88.8 Allergy status to other drugs, medicaments and biological substances
CPT/HCPCS: 71046

== ENCOUNTER 2020-01-22 17:32 | Emergency (ER) | payer MEDICAID ==
--- NOTE | 2020-01-22 19:04 | Emergency Department Report ---
Blank Doc - Documentation Documentation: 34-year-old female that presents with body aches, SOB, and cough. This initial assessment/diagnostic orders/clinical plan/treatment(s) is/are subject to change based on patient's health status, clinical progression and re- assessment by fellow clinical providers in the ED. Further treatment and workup at subsequent clinical providers discretion. Patient/guardians urged not to elope from the ED as their condition may be serious if not clinically assessed and managed. Initial orders include: 1- Patient sent to [facility] for further evaluation and treatment 2- CXR
[2020-01-22 19:11] VITALS: BP 139/96
--- NOTE | 2020-01-22 19:59 | XRay Report ---
CHEST 2 VIEWS INDICATION / CLINICAL INFORMATION: cough. Difficulty breathing and cough x1 week. COMPARISON: 05/01/19 FINDINGS: SUPPORT DEVICES: None. HEART / MEDIASTINUM: No significant abnormality. LUNGS / PLEURA: No significant pulmonary or pleural abnormality. No pneumothorax. ADDITIONAL FINDINGS: No significant additional findings. IMPRESSION: 1. No acute findings. No change. Signer Name: Willard Hanson MD Signed: 01/22/2020 7:54 PM Workstation Name: [id number]
[2020-01-23] MEDS ORDERED: predniSONE 20 MG TAB PO ONE (04:17)
[2020-01-23] MEDS ORDERED: ACETAMINOPHEN 500 MG TAB PO ONE (04:17)
[2020-01-23] MEDS ORDERED: IPRATROPIUM/ALBUTEROL SULFATE 3 ML AMPUL.NEB IH ONE (04:17)
--- NOTE | 2020-01-23 05:38 | Emergency Department Report ---
- General Chief Complaint: Dyspnea/Respdistress Stated Complaint: SICK/COLD SYM/OLIVIER Time Seen by Provider: 01/22/20 19:03 Source: patient Mode of arrival: Ambulatory Limitations: No Limitations - History of Present Illness Initial Comments: Patient is a 34-year-old white female with a history of asthma, heavy tobacco abuse, GERD, anxiety and depression who presents to the ED with complaint of acute onset persistent nasal and sinus congestion, frontal sinus pressure, persistent dry cough with pleuritic chest pain with wheezing and shortness of breath for the last 1 week. Patient states that other family members have had similar symptoms. Patient states that she has been taking [id number] medications with no relief. Patient denies dizziness, syncope, chest pain, ab dominal pain, nausea, vomiting, sore throat, back pain, diarrhea, change in vision or neck pain. MD Complaint: cough, rhinorrhea, nasal congestion, sinus pain -: Sudden, week(s) (1) Severity: severe Severity scale (0 -10): 7 Quality: sharp, aching Consistency: constant Improves With: nothing Worsens With: nothing Context: sick contacts Associated Symptoms: denies other symptoms, rhinorrhea, nasal congestion, cough, shortness of breath. denies: fever, chills, myalgias, diaphoresis, sore throat, stiff neck, chest pain, abdominal pain, nausea, vomiting, dysuria, rash, right sweats, weight loss, epistaxis, ear pain, other Treatments Prior to Arrival: none - Related Data Home Medications Medication Instructions Recorded Confirmed Last Taken Loratadine (Nf) [Claritin (Nf)] 10 mg PO QDAY 05/17/13 10/03/14 05/30/13 10 MG Nortriptyline (Nf) [Pamelor (Nf)] 75 mg PO QHS 05/17/13 10/03/14 05/30/13 75 MG Previous Rx's Medication Instructions Recorded Last Taken Type Acetaminophen/Codeine [Tylenol #3] 1 tab PO Q6H PRN #15 tab 10/04/14 Unknown Rx Tramadol HCl [traMADol] 50 mg PO Q8HR #15 tablet 10/04/14 Unknown Rx Albuterol Sulfate [Ventolin HFA] 2 puff IH Q4H PRN #1 hfa.aer.ad 07/16/16 Unknown Rx traMADoL [Ultram] 50 mg PO Q6HR PRN #10 tablet 10/09/18 Unknown Rx Acetaminophen [Tylenol] 650 mg PO Q8H PRN #10 capsule 01/30/19 Unknown Rx Chlorhexidine Mouthwash [Peridex] 15 ml MM BID #1 bottle 01/30/19 Unknown Rx Clindamycin [Clindamycin CAP] 300 mg PO Q8H #21 cap 01/30/19 Unknown Rx Azithromycin [Zithromax Z-DENNYS] 250 mg PO DAILY 5 Days #6 tab 03/15/19 Unknown Rx Inhaler, Assist Devices [Space 1 each MC ONCE PRN #1 spacer 03/15/19 Unknown Rx Chamber Plus] Prednisone [predniSONE 10 mg 10 mg PO .TAPER #1 tab.ds.pk 03/15/19 Unknown Rx (6-Day Pack, 21 Tabs)] guaiFENesin/CODEINE [Robitussin AC] 5 ml PO QHS PRN #50 ml 03/15/19 Unknown Rx guaiFENesin/CODEINE [Robitussin AC] 5 ml PO Q6HR PRN #100 oral.liqd 05/01/19 Unknown Rx Albuterol Mdi (or & Nicu Only) 2 puff IH QID PRN #1 inhalation 01/23/20 Unknown Rx [ProAir HFA Inhaler] Benzonatate [Tessalon Perles] 100 mg PO Q8HR #30 capsule 01/23/20 Unknown Rx Cetirizine HCl [Zyrtec 10mg tab] 10 mg PO DAILY 10 Days #30 tablet 01/23/20 Un known Rx DOXYCYCLINE Hyclate [Vibramycin 100 mg PO Q12HR #20 capsule 01/23/20 Unknown Rx CAP] predniSONE [Deltasone] 40 mg PO QDAY #12 tab 01/23/20 Unknown Rx Allergies Allergy/AdvReac Type Severity Reaction Status Date / Time Penicillins Allergy Rash Verified 05/01/19 15:22 Sulfa (Sulfonamide Allergy Rash Verified 05/01/19 15:22 Antibiotics) ibuprofen [From Motrin] AdvReac Swelling Verified 05/01/19 15:22 ED Review of Systems ROS: Stated complaint: SICK/COLD SYM/OLIVIER Other details as noted in HPI Constitutional: denies: chills, fever Eyes: denies: eye pain, eye discharge, vision change ENT: congestion, other (Grossly congested nasal passages; frontal sinus pressure). denies: ear pain Respiratory: cough, shortness of breath, wheezing Cardiovascular: denies: chest pain, palpitations Endocrine: no symptoms reported Gastrointestinal: denies: abdominal pain, nausea, vomiting, diarrhea Genitourinary: denies: urgency, dysuria, discharge Musculoskeletal: denies: back pain, joint swelling, arthralgia Skin: denies: rash, lesions Neurological: denies: headache, weakness, paresthesias Psychiatric: denies: anxiety, depression Hematological/Lymphatic: denies: easy bleeding, easy bruising ED Past Medical Hx - Past Medical History Hx GERD: Yes Hx Seizures: No Hx Psychiatric Treatment: Yes (DEPRESSION) Hx Asthma: Yes Additional medical history: H. pylori - Surgical History Hx Cholecystectomy: Yes Additional Surgical History: hemorrhoidectomy - Social History Smoking Status: Current Some Day Smoker - Medications Home Medications: Home Medications Medication Instructions Recorded Confirmed Last Taken Type Loratadine (Nf) [Claritin (Nf)] 10 mg PO QDAY 05/17/13 10/03/14 05/30/13 History 10 MG Nortriptyline (Nf) [Pamelor (Nf)] 75 mg PO QHS 05/17/13 10/03/14 05/30/13 History 75 MG Acetaminophen/Codeine [Tylenol #3] 1 tab PO Q6H PRN #15 tab 10/04/14 Unknown Rx Tramadol HCl [traMADol] 50 mg PO Q8HR #15 tablet 10/04/14 Unknown Rx Albuterol Sulfate [Ventolin HFA] 2 puff IH Q4H PRN #1 hfa.aer.ad 07/16/16 Unknown Rx traMADoL [Ultram] 50 mg PO Q6HR PRN #10 tablet 10/09/18 Unknown Rx Acetaminophen [Tylenol] 650 mg PO Q8H PRN #10 capsule 01/30/19 Unknown Rx Chlorhexidine Mouthwash [Peridex] 15 ml MM BID #1 bottle 01/30/19 Unknown Rx Clindamycin [Clindamycin CAP] 300 mg PO Q8H #21 cap 01/30/19 Unknown Rx Azithromycin [Zithromax Z-DENNYS] 250 mg PO DAILY 5 Days #6 tab 03/15/19 Unknown Rx Inhaler, Assist Devices [Space 1 each MC ONCE PRN #1 spacer 03/15/19 Unknown Rx Chamber Plus] Prednisone [predniSONE 10 mg 10 mg PO .TAPER #1 tab.ds.pk 03/15/19 Unknown Rx (6-Day Pack, 21 Tabs)] guaiFENesin/CODEINE [Robitussin AC] 5 ml PO QHS PRN #50 ml 03/15/19 Unknown Rx guaiFENesin/CODEINE [Robitussin AC] 5 ml PO Q6HR PRN #100 oral.liqd 05/01/19 Unknown Rx Albuterol Mdi (or & Nicu Only) 2 puff IH QID PRN #1 inhalation 01/23/20 Unknown Rx [ProAir HFA Inhaler] Benzonatate [Tessalon Perles] 100 mg PO Q8HR #30 capsule 01/23/20 Unknown Rx Cetirizine HCl [Zyrtec 10mg tab] 10 mg PO DAILY 10 Days #30 tablet 01/23/20 Unknown Rx DOXYCYCLINE Hyclate [Vibramycin 100 mg PO Q12HR #20 capsule 01/23/20 Unknown Rx CAP] predniSONE [Deltasone] 40 mg PO QDAY #12 tab 01/23/20 Unknown Rx ED Physical Exam - General Limitations: No Limitations General appearance: alert, in no apparent distress - Head Head exam: Present: atraumatic, normocephalic, normal inspection - Eye Eye exam: Present: normal appearance, PERRL, EOMI Pupils: Present: normal accommodation - ENT ENT exam: Present: normal orophraynx, mucous membranes moist, TM's normal bill aterally, normal external ear exam, other (Grossly congested nasal passages; frontal sinus pressure) - Neck Neck exam: Present: normal inspection, full ROM. Absent: tenderness, lymphadenopathy - Respiratory Respiratory exam: Present: wheezes (Mildly diffuse coarse wheezes throughout). Absent: respiratory distress, rhonchi, stridor, chest wall tenderness, accessory muscle use, decreased breath sounds, prolonged expiratory - Cardiovascular Cardiovascular Exam: Present: normal rhythm, tachycardia, normal heart sounds. Absent: systolic murmur, diastolic murmur, rubs, gallop - GI/Abdominal GI/Abdominal exam: Present: soft, normal bowel sounds. Absent: distended, tenderness, guarding, hyperactive bowel sounds, hypoactive bowel sounds, organomegaly - Extremities Exam Extremities exam: Present: normal inspection, full ROM, normal capillary refill - Back Exam Back exam: Present: normal inspection, full ROM. Absent: tenderness, CVA tenderness (R), CVA tenderness (L), muscle spasm, paraspinal tenderness - Neurological Exam Neurological exam: Present: alert, oriented X3, CN II-XII intact, normal gait, reflexes normal - Psychiatric Psychiatric exam: Present: normal affect, normal mood - Skin Skin exam: Present: warm, dry, intact, normal color. Absent: rash ED Course Vital Signs 01/22/20 19:04 Temperature 99.2 F Pulse Rate 104 H Respiratory 18 Rate Blood Pressure 139/96 O2 Sat by Pulse 94 Oximetry ED Medical Decision Making - Radiology Data Radiology results: report reviewed, image reviewed Findings [facility] [address] [place] [address] XRay Report Signed Patient: LISA FREIRE MR#: [id number] : 1985 Acct:[id number] Age/Sex: 34 / F ADM Date: 01/22/20 Loc: ED Attending Dr: Ordering Physician: REANNA HANLEY NP Date of Service: 01/22/20 Procedure(s): XR chest routine 2V Accession Number(s): [id number] cc: REANNA HANLEY NP Fluoro Time In Minutes: CHEST 2 VIEWS INDICATION / CLINICAL INFORMATION: cough. Difficulty breathing and cough x1 week. COMPARISON: 05/01/19 FINDINGS: SUPPORT DEVICES: None. HEART / MEDIASTINUM: No significant abnormality. LUNGS / PLEURA: No significant pulmonary or pleural abnormality. No pneumothorax. ADDITIONAL FINDINGS: No significant additional findings. IMPRESSION: 1. No acute findings. No change. Signer Name: Willard Hanson MD Signed: 01/22/2020 7:54 PM Workstation Name: [id number] Transcribed By: DT Dictated By: Binu Hanson MD Electronically Authenticated By: Binu Hanson MD Signed Date/Time: 01/22/201953 DD/ 53 TD/TT: - Medical Decision Making This is a 34-year-old white female with a history of asthma, heavy tobacco abuse, GERD, anxiety and depression who presents to the ED with complaint of acute onset persistent nasal and sinus congestion, frontal sinus pressure, persistent dry cough with pleuritic chest pain with wheezing and shortness of breath for the last 1 week. Patient states that other family members have had similar symptoms. Patient states that she has been taking [id number] medications with no relief. In the ED, patient is alert and oriented x3 and is not in distress. Patient was treated with DuoNeb in the ED and also given oral prednisone, and chest x-ray shows no acute cardiopulmonary abnormalities or pneumonitis. On reevaluation, patient's wheezing resolved with medications and patient was discharged home on medications and advised to follow-up with her primary care physician in 5 to 7 days for reevaluation. Patient was advised to return to the ED immediately if symptoms get worse. - Differential Diagnosis Sinusitis; URI; bronchitis; Pneumonia Critical care attestation.: If time is entered above; I have spent that time in minutes in the direct care of this critically ill patient, excluding procedure time. ED Disposition Clinical Impression: Acute non-recurrent frontal sinusitis, Acute upper respiratory infection Acute bronchitis Qualifiers: Bronchitis organism: unspecified organism Qualified Code(s): J20.9 - Acute bronchitis, unspecified Disposition: DC- TO HOME OR SELFCARE Is pt being admited?: No Does the pt Need Aspirin: No Condition: Stable Instructions: Acute Bronchitis (ED), Upper Respiratory Infection (ED), Acute Bacterial Rhinosinusitis (ED) Additional Instructions: The chest x-ray shows no acute cardiopulmonary abnormalities or pneumonitis. Take medication with food, drink plenty of fluids and follow-up with your primary care physician in 7 to 10 days for reevaluation. Return to the ED immediately if symptoms get worse. Prescriptions: predniSONE [Deltasone] 40 mg PO QDAY #12 tab Albuterol Mdi (or & Nicu Only) [ProAir HFA Inhaler] 2 puff IH QID PRN #1 inhalation PRN Reason: Shortness Of Breath Benzonatate [Tessalon Perles] 100 mg PO Q8HR #30 capsule DOXYCYCLINE Hyclate [Vibramycin CAP] 100 mg PO Q12HR #20 capsule Cetirizine HCl [Zyrtec 10mg tab] 10 mg PO DAILY 10 Days #30 tablet Referrals: [facility] [Provider Group] - 3-5 Days Time of Disposition: 05:39 Print Language: SLOVENIAN
== END 2020-01-23 06:40 | disposition home or self-care (01) ==
LOC: ED 17:32
DX: J20.9 Acute bronchitis, unspecified (principal); J01.10 Acute frontal sinusitis, unspecified; J06.9 Acute upper respiratory infection, unspecified; K21.9 Gastro-esophageal reflux disease without esophagitis; F32.9 Major depressive disorder, single episode, unspecified; J45.909 Unspecified asthma, uncomplicated; F17.200 Nicotine dependence, unspecified, uncomplicated; Z90.49 Acquired absence of other specified parts of digestive tract; Z90.89 Acquired absence of other organs; Z79.2 Long term (current) use of antibiotics; Z79.899 Other long term (current) drug therapy; Z88.0 Allergy status to penicillin; Z88.2 Allergy status to sulfonamides; Z88.6 Allergy status to analgesic agent
CPT/HCPCS: 71046; 94640; 99283; J7512

== ENCOUNTER 2020-07-25 20:40 | Emergency (ER) | payer MEDICAID ==
--- NOTE | 2020-07-25 21:40 | Emergency Department Report ---
Stated Complaint: TOOTHACHE Time Seen by Provider: 07/25/20 21:36 - HPI History of Present Illness: 35-year-old female patient presents emergency department with complaints of diffusely poor dentition, worsening over the course of the last month. Patient states she was evaluated by a dentist 2 weeks ago, who "told her to come to the ER and get IV antibiotics." She is currently not scheduled to return to the dentist. She is not taking anything for pain. She is not on oral antibiotics. Denies fever, chills, sore throat, neck stiffness, purulent drainage, dysphagia, shortness of breath, hoarseness. Denies all other complaints at this time. - ROS Review of Systems: GENERAL: Negative for fever. ENT: Positive for dental pain. CARDIOVASCULAR: Negative for chest pain. PULMONARY: Negative for shortness of breath. GASTROINTESTINAL: Negative for abdominal pain. MUSCULOSKELETAL: Negative for back pain. NEUROLOGICAL: Negative for headache. INTEGUMENTARY: Negative for rash. - Exam Vital Signs: See nursing note Physical Exam: General: Awake, appropriately interactive, no acute distress. ENT: Oral mucosa is moist. Diffusely poor dentition with multiple decayed teeth. The gingiva appear normal. No fluctuance or evidence of periapical abscess. Sublingual, submental, and submandibular spaces all soft, without edema. No evidence for maxillary or buccal space abscess. No trismus. Patient is speaking in full sentences and handling secretions without difficulty. Neck: Supple. Full range of motion intact. Cardiovascular: Normal peripheral perfusion. Pulmonary: No respiratory distress. Patient is speaking normally without use of accessory muscles. Skin: No apparent rashes or lesions. Neurological: No facial asymmetry. Speech is clear. Follows commands. Patient is alert and oriented. Musculoskeletal: Moves all four extremities spontaneously with normal range of motion. Psych: Cooperative. Appropriate mood and affect. MSE screening note: Focused history and physical exam performed. Due to findings the following was ordered: ED Medical Decision Making - Medical Decision Making Patient presents to the emergency department requesting antibiotics for dental pain. Patient is afebrile. Vital signs are stable. She is speaking and handling her secretions without difficulty. No evidence of systemic illness or airway obstruction. Patient will be discharged home with prescription for Clindamycin (allergic to Penicillin) and appropriate analgesics. Emphasized the importance of calling dentist on Monday to schedule appointment. Patient expressed understanding and is agreeable to plan of care. Return precautions provided. ED Disposition for MSE Clinical Impression: Dental caries Disposition: MED SCREENING EXAM-LEFT Is pt being admited?: No Does the pt Need Aspirin: No Condition: Stable Instructions: Preventive Dental Care, Adult Additional Instructions: Take Tylenol every 4 hours and Motrin every 8 hours as needed for pain. Take Clindamycin with food as directed. Increase your dietary intake of probiotic rich foods while taking this medication. Use Magic Mouthwash as needed dental pain. Call your dentist on Monday to arrange follow-up. Return to the emergency department immediately for new or worsening symptoms. Prescriptions: Clindamycin [Clindamycin CAP] 450 mg PO Q8HR 7 Days capsule Nystas/Diphen/Xyl Visc/Mylanta [Magic Mouthwash] 30 ml PO Q4H PRN #1 bottle PRN Reason: Toothache Referrals: MARGARITA TAYLOR DDS [Staff Physician] - 3-5 Days Time of Disposition: 21:40
[2020-07-25 21:43] VITALS: BP 133/84
== END 2020-07-25 21:51 | disposition left against medical advice (07) ==
LOC: ED 20:40
DX: K02.9 Dental caries, unspecified (principal); Z53.21 Procedure and treatment not carried out due to patient leaving prior to being seen by health care provider

== ENCOUNTER 2020-08-01 18:03 | Emergency (ER) | payer MEDICAID ==
[2020-08-01 20:10] LABS: Basophils # (Auto) 0.2 K/mm3 (0.0-0.1); Basophils % (Auto) 1.4 % (0.0-1.8); Eosinophils # (Auto) 0.7 K/mm3 (0.0-0.4); Eosinophils % (Auto) 6.3 % (0.0-4.3); Hematocrit 40.4 % (30.3-42.9); Hemoglobin 13.8 gm/dl (10.1-14.3); Lymphocytes # (Auto) 4.2 K/mm3 (1.2-5.4); Lymphocytes % (Auto) 36.3 % (13.4-35.0); Mean Corpuscular HGB Conc 34 % (30-34); Mean Corpuscular Volume 85 fl (79-97); Monocytes # (Auto) 0.8 K/mm3 (0.0-0.8); Monocytes % (Auto) 6.9 % (0.0-7.3); Platelet Count 260 K/mm3 (140-440); Red Blood Count 4.74 M/mm3 (3.65-5.03); Red Cell Distribution Width 13.6 % (13.2-15.2)
[2020-08-01 20:32] LABS: Alanine Aminotransferase 17 units/L (7-56); Albumin 3.7 g/dL (3.9-5); BUN/Creatinine Ratio 13; Blood Urea Nitrogen 10 mg/dL (7-17); Calcium 8.6 mg/dL (8.4-10.2); Hemolysis Index 8
--- NOTE | 2020-08-01 21:22 | XRay Report ---
CHEST 2 VIEWS INDICATION / CLINICAL INFORMATION: chest pain. COMPARISON: 01/22/2020 FINDINGS: SUPPORT DEVICES: None. HEART / MEDIASTINUM: No significant abnormality. LUNGS / PLEURA: No significant pulmonary or pleural abnormality. No pneumothorax. ADDITIONAL FINDINGS: No significant additional findings. IMPRESSION: No significant abnormality or interval change from 01/22/2020 Signer Name: Manuel Taylor MD FACR Signed: 08/01/2020 9:18 PM Workstation Name: [id number]
[2020-08-02] MEDS ORDERED: ONDANSETRON 4 MG/2 ML INJ IV ONE (01:14)
[2020-08-02] MEDS ORDERED: FAMOTIDINE 20 MG/2 ML INJ IV ONE (01:14)
[2020-08-02] MEDS ORDERED: CYCLOBENZAPRINE 10 MG TAB PO ONE (01:17)
[2020-08-02] MEDS ORDERED: HYDROcodone/ACETAMINOPHEN 5-325 MG TAB PO ONE (01:22)
[2020-08-02] MEDS ORDERED: FAMOTIDINE 20 MG TAB PO ONE (02:06)
[2020-08-02] MEDS ORDERED: ONDANSETRON 4 MG ODT TAB PO ONE (02:07)
[2020-08-02 02:08] LABS: Bilirubin,Urine NEG (Negative); Blood,Urine SM (Negative); Color,Urine Yellow (Yellow); Mucus,Urine FEW /HPF; Protein,Urine <15 mg/dL mg/dL (Negative); Urobilinogen,Urine < 2.0 mg/dL (<2.0)
--- NOTE | 2020-08-02 06:05 | Emergency Department Report ---
ED Chest Pain HPI - General Chief Complaint: Chest Pain Stated Complaint: CHEST PAIN/VOMITTING Source: patient Mode of arrival: Ambulatory Limitations: No Limitations - History of Present Illness Initial Comments: Patient is a 35-year-old white female with a history of GERD, asthma, anxiety and depression who presents to the ED with acute onset persistent intermittent nausea and vomiting for the last 2 days. Patient also complains of burning anterior chest pain that radiates to the mid posterior thoracic area for the last 12 hours. Patient states that she has had up to 3 episodes of nausea and vomiting in the last 8 hours and that she has not been able to keep anything down and believes that she may be dehydrated. Patient states that the pain in the chest wall is burning and gets worse with nausea and vomiting. Patient denies dizziness, syncope, cough, diarrhea, abdominal pain, shortness of breath, sore throat, nasal and sinus congestion, dysuria, urine frequency and urgency, back pain or neck pain, palpitations or fever and chills. MD Complaint: chest pain (Anterior chest wall pain), other (Nausea and vomiting and headache) -: Sudden, days(s) (2) Onset: awoke with symptoms Pain Location: substernal Pain Radiation: none Severity: moderate Severity scale (0 -10): 6 Quality: aching, other (burning) Consistency: intermittent Improves With: nothing Worsens With: other (vomiting) re: nausea, vomting. denies: diaphoresis, dyspnea, sense of impending doom Other Symptoms: acid taste in mouth. denies: fever, syncope, leg swelling, p alpitations, burping, other Treatments Prior to Arrival: none Aspirin use within the Past 7 Days: (0) No - Related Data On Oral Contraceptives: No Home Medications Medication Instructions Recorded Confirmed Last Taken Loratadine (Nf) [Claritin (Nf)] 10 mg PO QDAY 05/17/13 10/03/14 05/30/13 10 MG Nortriptyline (Nf) [Pamelor (Nf)] 75 mg PO QHS 05/17/13 10/03/14 05/30/13 75 MG Previous Rx's Medication Instructions Recorded Last Taken Type Acetaminophen/Codeine [Tylenol #3] 1 tab PO Q6H PRN #15 tab 10/04/14 Unknown Rx Tramadol HCl [traMADol] 50 mg PO Q8HR #15 tablet 10/04/14 Unknown Rx Albuterol Sulfate [Ventolin HFA] 2 puff IH Q4H PRN #1 hfa.aer.ad 07/16/16 Unknown Rx traMADoL [Ultram] 50 mg PO Q6HR PRN #10 tablet 10/09/18 Unknown Rx Acetaminophen [Tylenol] 650 mg PO Q8H PRN #10 capsule 01/30/19 Unknown Rx Chlorhexidine Mouthwash [Peridex] 15 ml MM BID #1 bottle 01/30/19 Unknown Rx Clindamycin [Clindamycin CAP] 300 mg PO Q8H #21 cap 01/30/19 Unknown Rx Azithromycin [Zithromax Z-DENNYS] 250 mg PO DAILY 5 Days #6 tab 03/15/19 Unknown Rx Inhaler, Assist Devices [Space 1 each MC ONCE PRN #1 spacer 03/15/19 Unknown Rx Chamber Plus] Prednisone [predniSONE 10 mg 10 mg PO .TAPER #1 tab.ds.pk 03/15/19 Unknown Rx (6-Day Pack, 21 Tabs)] guaiFENesin/CODEINE [Robitussin AC] 5 ml PO QHS PRN #50 ml 03/15/19 Unknown Rx guaiFENesin/CODEINE [Robitussin AC] 5 ml PO Q6HR PRN #100 oral.liqd 05/01/19 Unknown Rx Albuterol Mdi (or & Nicu Only) 2 puff IH QID PRN #1 inhalation 01/23/20 Unknown Rx [ProAir HFA Inhaler] Benzonatate [Tessalon Perles] 100 mg PO Q8HR #30 capsule 01/23/20 Unknown Rx Cetirizine HCl [Zyrtec 10mg tab] 10 mg PO DAILY 10 Days #30 tablet 01/23/20 Unknown Rx DOXYCYCLINE Hyclate [Vibramycin 100 mg PO Q12HR #20 capsule 01/23/20 Unknown Rx CAP] predniSONE [Deltasone] 40 mg PO QDAY #12 tab 01/23/20 Unknown Rx Clindamycin [Clindamycin CAP] 450 mg PO Q8HR 7 Days capsule 07/25/20 Unknown Rx Nystas/Diphen/Xyl Visc/Mylanta 30 ml PO Q4H PRN #1 bottle 07/25/20 Unknown Rx [Magic Mouthwash] Baclofen 20 mg PO Q8H PRN #21 tablet 08/02/20 Unknown Rx Famotidine [Pepcid] 20 mg PO BID #60 tablet 08/02/20 Unknown Rx Ondansetron [Zofran Odt] 4 mg PO Q8HR PRN #20 tab.rapdis 08/02/20 Unknown Rx Allergies Allergy/AdvReac Type Severity Reaction Status Date / Time Penicillins Allergy Rash Verified 08/01/20 18:38 Sulfa (Sulfonamide Allergy Rash Verified 08/01/20 18:38 Antibiotics) ibuprofen [From Motrin] AdvReac Swelling Verified 08/01/20 18:38 Heart Score - HEART Score History: Slightly suspicious EKG: Normal Age: < 45 Risk factors: 1-2 risk factors Troponin: < normal limit HEART Score: 1 - EKG Read Time Time EKG Completed: 18:40 EKG Read Time: 18:45 - Critical Actions Critical Actions: 0-3 pts:0.9-1.7%risk of adverse cardiac event.Candidate for discharge ED Review of Systems ROS: Stated complaint: CHEST PAIN/VOMITTING Other details as noted in HPI Constitutional: denies: chills, fever Eyes: denies: eye pain, eye discharge, vision change ENT: denies: ear pain, throat pain Respiratory: denies: cough, shortness of breath, wheezing Cardiovascular: chest pain (Anterior chest pain). denies: palpitations Endocrine: no symptoms reported Gastrointestinal: nausea, vomiting. denies: abdominal pain, diarrhea Genitourinary: denies: urgency, dysuria, discharge Musculoskeletal: denies: back pain, joint swelling, arthralgia Skin: denies: rash, lesions Neurological: denies: headache, weakness, paresthesias Psychiatric: denies: anxiety, depression Hematological/Lymphatic: denies: easy bleeding, easy bruising ED Past Medical Hx - Past Medical History Hx GERD: Yes Hx Seizures: No Hx Psychiatric Treatment: Yes (DEPRESSION) Hx Asthma: Yes Additional medical history: H. pylori - Surgical History Hx Cholecystectomy: Yes Additional Surgical History: hemorrhoidectomy - Social History Smoking Status: Current Every Day Smoker Substance Use Type: None - Medications Home Medications: Home Medications Medication Instructions Recorded Confirmed Last Taken Type Loratadine (Nf) [Claritin (Nf)] 10 mg PO QDAY 05/17/13 10/03/14 05/30/13 History 10 MG Nortriptyline (Nf) [Pamelor (Nf)] 75 mg PO QHS 05/17/13 10/03/14 05/30/13 History 75 MG Acetaminophen/Codeine [Tylenol #3] 1 tab PO Q6H PRN #15 tab 10/04/14 Unknown Rx Tramadol HCl [traMADol] 50 mg PO Q8HR #15 tablet 10/04/14 Unknown Rx Albuterol Sulfate [Ventolin HFA] 2 puff IH Q4H PRN #1 hfa.aer.ad 07/16/16 Unknown Rx traMADoL [Ultram] 50 mg PO Q6HR PRN #10 tablet 10/09/18 Unknown Rx Acetaminophen [Tylenol] 650 mg PO Q8H PRN #10 capsule 01/30/19 Unknown Rx Chlorhexidine Mouthwash [Peridex] 15 ml MM BID #1 bottle 01/30/19 Unknown Rx Clindamycin [Clindamycin CAP] 300 mg PO Q8H #21 cap 01/30/19 Unknown Rx Azithromycin [Zithromax Z-DENNYS] 250 mg PO DAILY 5 Days #6 tab 03/15/19 Unknown Rx Inhaler, Assist Devices [Space 1 each MC ONCE PRN #1 spacer 03/15/19 Unknown Rx Chamber Plus] Prednisone [predniSONE 10 mg 10 mg PO .TAPER #1 tab.ds.pk 03/15/19 Unknown Rx (6-Day Pack, 21 Tabs)] guaiFENesin/CODEINE [Robitussin AC] 5 ml PO QHS PRN #50 ml 03/15/19 Unknown Rx guaiFENesin/CODEINE [Robitussin AC] 5 ml PO Q6HR PRN #100 oral.liqd 05/01/19 Unknown Rx Albuterol Mdi (or & Nicu Only) 2 puff IH QID PRN #1 inhalation 01/23/20 Unknown Rx [ProAir HFA Inhaler] Benzonatate [Tessalon Perles] 100 mg PO Q8HR #30 capsule 01/23/20 Unknown Rx Cetirizine HCl [Zyrtec 10mg tab] 10 mg PO DAILY 10 Days #30 tablet 01/23/20 Unknown Rx DOXYCYCLINE Hyclate [Vibramycin 100 mg PO Q12HR #20 capsule 01/23/20 Unknown Rx CAP] predniSONE [Deltasone] 40 mg PO QDAY #12 tab 01/23/20 Unknown Rx Clindamycin [Clindamycin CAP] 450 mg PO Q8HR 7 Days capsule 07/25/20 Unknown Rx Nystas/Diphen/Xyl Visc/Mylanta 30 ml PO Q4H PRN #1 bottle 07/25/20 Unknown Rx [Magic Mouthwash] Baclofen 20 mg PO Q8H PRN #21 tablet 08/02/20 Unknown Rx Famotidine [Pepcid] 20 mg PO BID #60 tablet 08/02/20 Unknown Rx Ondansetron [Zofran Odt] 4 mg PO Q8HR PRN #20 tab.rapdis 08/02/20 Unknown Rx ED Physical Exam - General Limitations: No Limitations General appearance: alert, in no apparent distress - Head Head exam: Present: atraumatic, normocephalic, normal inspection - Eye Eye exam: Present: normal appearance, PERRL, EOMI Pupils: Present: normal accommodation - ENT ENT exam: Present: normal exam, normal orophraynx, mucous membranes moist, TM's normal bilaterally, normal external ear exam - Neck Neck exam: Present: normal inspection, full ROM - Respiratory Respiratory exam: Present: normal lung sounds bilaterally. Absent: respiratory distress, wheezes, rales, rhonchi, chest wall tenderness, accessory muscle use, decreased breath sounds, prolonged expiratory - Cardiovascular Cardiovascular Exam: Present: regular rate, normal rhythm, normal heart sounds. Absent: systolic murmur, diastolic murmur, rubs, gallop - GI/Abdominal GI/Abdominal exam: Present: soft, normal bowel sounds. Absent: tenderness, guarding, rebound, hyperactive bowel sounds, hypoactive bowel sounds, organomegaly - Extremities Exam Extremities exam: Present: normal inspection, full ROM, normal capillary refill - Back Exam Back exam: Present: normal inspection, full ROM, tenderness (Palpable posterior mid thoracic paraspinal musculoskeletal tenderness), muscle spasm, paraspinal tenderness - Neurological Exam Neurological exam: Present: alert, oriented X3, CN II-XII intact, normal gait, reflexes normal - Psychiatric Psychiatric exam: Present: normal affect, normal mood - Skin Skin exam: Present: warm, dry, intact, normal color. Absent: rash ED Course Vital Signs 08/01/20 18:38 Temperature 99.2 F Pulse Rate 92 H Respiratory 15 Rate Blood Pressure 122/69 O2 Sat by Pulse 98 Oximetry TANVIR score - Tanvir Score Age > 65: (0) No Aspirin use within the Past 7 Days: (0) No 3 or more CAD Risk Factors: (0) No 2 or more Angina events in past 24 hrs: (0) No Known CAD with more than 50% Stenosis: (0) No Elevated Cardiac Markers: (0) No ST Deviation Greater than 0.5mm: (0) No TANVIR Score: 0 ED Medical Decision Making - Lab Data Result diagrams: 08/01/20 19:57 08/01/20 19:57 - EKG Data EKG shows normal: sinus rhythm Rate: normal - EKG Data Interpretation: normal EKG 08/02/20 06:11 EKG shows normal sinus rhythm with a ventricular rate of [address] or T wave abnormalities. - Radiology Data Radiology results: report reviewed, image reviewed [place] [id number] XRay Report Signed Patient: LISA FREIRE MR#: [id number] : 1985 Acct:[id number] Age/Sex: 35 / F ADM Date: 08/01/20 Loc: ED Attending Dr: Ordering Physician: RAMAKRISHNA YIP Date of Service: 08/01/20 Procedure(s): XR chest routine 2V Accession Number(s): [id number] cc: RAMAKRISHNA YIP Fluoro Time In Minutes: CHEST 2 VIEWS INDICATION / CLINICAL INFORMATION: chest pain. COMPARISON: 01/22/2020 FINDINGS: SUPPORT DEVICES: None. HEART / MEDIASTINUM: No significant abnormality. LUNGS / PLEURA: No significant pulmonary or pleural abnormality. No pneumothorax. ADDITIONAL FINDINGS: No significant additional findings. IMPRESSION: No significant abnormality or interval change from 01/22/2020 Signer Name: Manuel Taylor MD FACR Signed: 08/01/2020 9:18 PM Workstation Name: [id number] Transcribed By: MS Dictated By: Manuel Taylor MD Electronically Authenticated By: Manuel Taylor MD Signed Date/Time: 08/01/202117 DD/ 16 TD/TT: - Medical Decision Making This is a 35-year-old white female with a history of GERD, asthma, anxiety and depression who presents to the ED with acute onset persistent intermittent nausea and vomiting for the last 2 days. Patient also complaints of burning anterior chest pain that radiates to the mid posterior thoracic area for the last 12 hours. Patient states that she has had up to 3 episodes of nausea and vomiting in the last 8 hours and that she has not been able to keep anything down and believes that she may be dehydrated. Patient states that the pain in the chest wall is burning and gets worse with nausea and vomiting. In the ED, patient is alert and oriented x3 and is not in any distress. Patient was treated for nausea and vomiting, also given antacids and muscle relaxants. Chest x-ray shows no acute cardiopulmonary abnormalities or pneumonitis. EKG shows normal sinus rhythm with a ventricular rate of [address] or T wave abnormalities. Lab test results were reviewed and are all nonactionable except for mild acute leukocytosis of 11,400. The initial and 3-hour troponin level was normal. Patient symptoms are likely due to GERD complications due to persistent nausea and vomiting. On reevaluation, patient felt better and was discharged home on antiemetics, antacids and muscle relaxants. Patient was advised to follow-up with her primary care physician in 3 to 5 days for reevaluation or return to the ED immediately if symptoms get worse. - Differential Diagnosis Pneumonia; gastroenteritis; GERD; muscle spasm; ACS; bronchitis; Critical care attestation.: If time is entered above; I have spent that time in minutes in the direct care of this critically ill patient, excluding procedure time. ED Disposition Clinical Impression: Acute nonspecific chest pain with low risk of coronary artery disease, Nausea and vomiting in adult patient, Spasm of thoracic back muscle GERD (gastroesophageal reflux disease) Qualifiers: Esophagitis presence: esophagitis presence not specified Qualified Code(s): K21.9 - Gastro-esophageal reflux disease without esophagitis Disposition: DC-01 TO HOME OR SELFCARE Is pt being admited?: No Does the pt Need Aspirin: No Condition: Stable Instructions: Chest Pain (ED), Nonspecific Chest Pain, Adult, [id number], Nausea and Vomiting, Adult, [id number], Gastroesophageal Reflux Disease, A dult, [id number], Muscle Cramps and Spasms, [id number] Additional Instructions: All lab test results were reviewed and are all nonactionable including cardiac enzymes which are all normal. Chest x-ray showed no acute cardiopulmonary abnormalities or pneumonitis. Therefore your symptoms are likely due to GERD or viral gastroenteritis causing you to have persistent nausea and vomiting, worsening your acid reflux. Therefore take medications as advised, drink plenty of fluids and follow-up with your primary care physician in 5 to 7 days for reevaluation. Return to the ED immediately if symptoms get worse. Prescriptions: Baclofen 20 mg PO Q8H PRN #21 tablet PRN Reason: Muscle Spasm Famotidine [Pepcid] 20 mg PO BID #60 tablet Ondansetron [Zofran Odt] 4 mg PO Q8HR PRN #20 tab.rapdis PRN Reason: Nausea Referrals: [facility] [Provider Group] - 7-10 days Time of Disposition: 06:04 Print Language: FRENCH
[2020-08-02 06:15] VITALS: BP 124/78
--- NOTE | 2020-08-03 13:41 | Electrocardiograph Report ---
[facility] Test Date: 2020-08-01 Test Time: 18:40:17 Pat Name: LISA FREIRE Department: Room: Gender: F Nurse Examiner: BETH : 1985 Requested By: RAMAKRISHNA YIP Order Number: [id number] Reading MD: Batsheva Hassan Measurements Intervals [place] Rate: 78 P: 42 AL: 156 QRS: 3 QRSD: 106 T: 37 QT: 369 QTc: 421 Interpretive Statements Sinus rhythm No previous ECG available for comparison Electronically Signed On 08-03-2020 13:40:58 EDT by Batsheva Hassan
== END 2020-08-02 06:16 | disposition home or self-care (01) ==
LOC: ED 18:03
DX: K21.9 Gastro-esophageal reflux disease without esophagitis (principal); M62.830 Muscle spasm of back; R07.89 Other chest pain; R11.2 Nausea with vomiting, unspecified; F32.9 Major depressive disorder, single episode, unspecified; J45.909 Unspecified asthma, uncomplicated; F17.200 Nicotine dependence, unspecified, uncomplicated; Z90.49 Acquired absence of other specified parts of digestive tract; Z98.890 Other specified postprocedural states; Z79.2 Long term (current) use of antibiotics; Z79.899 Other long term (current) drug therapy; Z88.0 Allergy status to penicillin; Z88.2 Allergy status to sulfonamides; Z88.6 Allergy status to analgesic agent
CPT/HCPCS: 36415; 71046; 80053; 81001; 83690; 84484; 84702; 85025; 93005; Q0162

== ENCOUNTER 2020-08-16 14:36 | Emergency (ER) | payer MEDICAID ==
[2020-08-16 17:03] VITALS: BP 135/92
--- NOTE | 2020-08-16 17:27 | Emergency Department Report ---
ED General Adult HPI - General Chief complaint: Upper Respiratory Infection Stated complaint: SOB/CHEST PAIN/COUGHING/TEETH PAIN Time Seen by Provider: 08/16/20 16:59 Source: patient Mode of arrival: Ambulatory Limitations: No Limitations - History of Present Illness Initial comments: 35-year-old female patient with history of asthma presents to the emergency department with complaints of cough, congestion, myalgias, nausea, vomiting, and headache for 1 week. Patient states she experiences discomfort in her chest when she coughs. All members of patient's household are reportedly experiencing similar symptoms. She has not been tested for COVID-19 since her symptoms began. No current steroid or antibiotic use. No recent travel. She has been t aking DayQuil with limited relief. Denies fever, sore throat, hemoptysis, abdominal pain, pelvic pain, neck stiffness, rash, shortness of breath. Denies all other complaints at this time. - Related Data Home Medications Medication Instructions Recorded Confirmed Last Taken Loratadine (Nf) [Claritin (Nf)] 10 mg PO QDAY 05/17/13 10/03/14 05/30/13 10 MG Nortriptyline (Nf) [Pamelor (Nf)] 75 mg PO QHS 05/17/13 10/03/14 05/30/13 75 MG Previous Rx's Medication Instructions Recorded Last Taken Type Acetaminophen/Codeine [Tylenol #3] 1 tab PO Q6H PRN #15 tab 10/04/14 Unknown Rx Tramadol HCl [traMADol] 50 mg PO Q8HR #15 tablet 10/04/14 Unknown Rx Albuterol Sulfate [Ventolin HFA] 2 puff IH Q4H PRN #1 hfa.aer.ad 07/16/16 Unknown Rx traMADoL [Ultram] 50 mg PO Q6HR PRN #10 tablet 10/09/18 Unknown Rx Acetaminophen [Tylenol] 650 mg PO Q8H PRN #10 capsule 01/30/19 Unknown Rx Chlorhexidine Mouthwash [Peridex] 15 ml MM BID #1 bottle 01/30/19 Unknown Rx Clindamycin [Clindamycin CAP] 300 mg PO Q8H #21 cap 01/30/19 Unknown Rx Azithromycin [Zithromax Z-DENNYS] 250 mg PO DAILY 5 Days #6 tab 03/15/19 Unknown Rx Inhaler, Assist Devices [Space 1 each MC ONCE PRN #1 spacer 03/15/19 Unknown Rx Chamber Plus] Prednisone [predniSONE 10 mg 10 mg PO .TAPER #1 tab.ds.pk 03/15/19 Unknown Rx (6-Day Pack, 21 Tabs)] guaiFENesin/CODEINE [Robitussin AC] 5 ml PO QHS PRN #50 ml 03/15/19 Unknown Rx guaiFENesin/CODEINE [Robitussin AC] 5 ml PO Q6HR PRN #100 oral.liqd 05/01/19 Unknown Rx Albuterol Mdi (or & Nicu Only) 2 puff IH QID PRN #1 inhalation 01/23/20 Unknown Rx [ProAir HFA Inhaler] Benzonatate [Tessalon Perles] 100 mg PO Q8HR #30 capsule 01/23/20 Unknown Rx Cetirizine HCl [Zyrtec 10mg tab] 10 mg PO DAILY 10 Days #30 tablet 01/23/20 Unknown Rx DOXYCYCLINE Hyclate [Vibramycin 100 mg PO Q12HR #20 capsule 01/23/20 Unknown Rx CAP] predniSONE [Deltasone] 40 mg PO QDAY #12 tab 01/23/20 Unknown Rx Clindamycin [Clindamycin CAP] 450 mg PO Q8HR 7 Days capsule 07/25/20 Unknown Rx Nystas/Diphen/Xyl Visc/Mylanta 30 ml PO Q4H PRN #1 bottle 07/25/20 Unknown Rx [Magic Mouthwash] Baclofen 20 mg PO Q8H PRN #21 tablet 08/02/20 Unknown Rx Famotidine [Pepcid] 20 mg PO BID #60 tablet 08/02/20 Unknown Rx Ondansetron [Zofran Odt] 4 mg PO Q8HR PRN #20 tab.rapdis 08/02/20 Unknown Rx Brompheniramine/Pseudoephed/Dm 10 ml PO Q4H #1 bottle 08/16/20 Unknown Rx [Bromfed Dm Cough Syrup] Nystas/Diphen/Xyl Visc/Mylanta 30 ml MM Q4H #1 bottle 08/16/20 Unknown Rx [Magic Mouthwash] Allergies Allergy/AdvReac Type Severity Reaction Status Date / Time Penicillins Allergy Rash Verified 08/16/20 16:58 Sulfa (Sulfonamide Allergy Rash Verified 08/16/20 16:58 Antibiotics) ibuprofen [From Motrin] AdvReac Swelling Verified 08/16/20 16:58 ED Review of Systems ROS: Stated complaint: SOB/CHEST PAIN/COUGHING/TEETH PAIN Other details as noted in HPI Other: GENERAL: Negative for fever, chills, weight change, anorexia, fatigue. ENT: Positive for congestion. CARDIOVASCULAR: Negative for chest pain, palpitations, lower extremity swelling. PULMONARY: Positive for cough. GASTROINTESTINAL: Positive for nausea and vomiting. MUSCULOSKELETAL: Positive for myalgias. NEUROLOGICAL: Negative for headache, seizure, syncope, paresthesias, weakness. INTEGUMENTARY: Negative for erythema, rash, diaphoresis, laceration, ecchymosis. HEMATOLOGICAL: Negative for hemoptysis, hematemesis, hematochezia, hematuria. PSYCHIATRIC: Negative for hallucinations, suicidal ideation, homicidal ideation, anxiety, depression. ED Past Medical Hx - Past Medical History Hx GERD: Yes Hx Seizures: No Hx Psychiatric Treatment: Yes (DEPRESSION) Hx Asthma: Yes Additional medical history: H. pylori - Surgical History Hx Cholecystectomy: Yes Additional Surgical History: hemorrhoidectomy - Social History Smoking Status: Current Every Day Smoker Substance Use Type: None - Medications Home Medications: Home Medications Medication Instructions Recorded Confirmed Last Taken Type Loratadine (Nf) [Claritin (Nf)] 10 mg PO QDAY 05/17/13 10/03/14 05/30/13 History 10 MG Nortriptyline (Nf) [Pamelor (Nf)] 75 mg PO QHS 05/17/13 10/03/14 05/30/13 History 75 MG Acetaminophen/Codeine [Tylenol #3] 1 tab PO Q6H PRN #15 tab 10/04/14 Unknown Rx Tramadol HCl [traMADol] 50 mg PO Q8HR #15 tablet 10/04/14 Unknown Rx Albuterol Sulfate [Ventolin HFA] 2 puff IH Q4H PRN #1 hfa.aer.ad 07/16/16 Unknown Rx traMADoL [Ultram] 50 mg PO Q6HR PRN #10 tablet 10/09/18 Unknown Rx Acetaminophen [Tylenol] 650 mg PO Q8H PRN #10 capsule 01/30/19 Unknown Rx Chlorhexidine Mouthwash [Peridex] 15 ml MM BID #1 bottle 01/30/19 Unknown Rx Clindamycin [Clindamycin CAP] 300 mg PO Q8H #21 cap 01/30/19 Unknown Rx Azithromycin [Zithromax Z-DENNYS] 250 mg PO DAILY 5 Days #6 tab 03/15/19 Unknown Rx Inhaler, Assist Devices [Space 1 each MC ONCE PRN #1 spacer 03/15/19 Unknown Rx Chamber Plus] Prednisone [predniSONE 10 mg 10 mg PO .TAPER #1 tab.ds.pk 03/15/19 Unknown Rx (6-Day Pack, 21 Tabs)] guaiFENesin/CODEINE [Robitussin AC] 5 ml PO QHS PRN #50 ml 03/15/19 Unknown Rx guaiFENesin/CODEINE [Robitussin AC] 5 ml PO Q6HR PRN #100 oral.liqd 05/01/19 Unknown Rx Albuterol Mdi (or & Nicu Only) 2 puff IH QID PRN #1 inhalation 01/23/20 Unknown Rx [ProAir HFA Inhaler] Benzonatate [Tessalon Perles] 100 mg PO Q8HR #30 capsule 01/23/20 Unknown Rx Cetirizine HCl [Zyrtec 10mg tab] 10 mg PO DAILY 10 Days #30 tablet 01/23/20 Unknown Rx DOXYCYCLINE Hyclate [Vibramycin 100 mg PO Q12HR #20 capsule 01/23/20 Unknown Rx CAP] predniSONE [Deltasone] 40 mg PO QDAY #12 tab 01/23/20 Unknown Rx Clindamycin [Clindamycin CAP] 450 mg PO Q8HR 7 Days capsule 07/25/20 Unknown Rx Nystas/Diphen/Xyl Visc/Mylanta 30 ml PO Q4H PRN #1 bottle 07/25/20 Unknown Rx [Magic Mouthwash] Baclofen 20 mg PO Q8H PRN #21 tablet 08/02/20 Unknown Rx Famotidine [Pepcid] 20 mg PO BID #60 tablet 08/02/20 Unknown Rx Ondansetron [Zofran Odt] 4 mg PO Q8HR PRN #20 tab.rapdis 08/02/20 Unknown Rx Brompheniramine/Pseudoephed/Dm 10 ml PO Q4H #1 bottle 08/16/20 Unknown Rx [Bromfed Dm Cough Syrup] Nystas/Diphen/Xyl Visc/Mylanta 30 ml MM Q4H #1 bottle 08/16/20 Unknown Rx [Magic Mouthwash] ED Physical Exam - General Limitations: No Limitations - Other Other exam information: General: Awake and alert. No acute distress. Head: Atraumatic, normocephalic. Eyes: EOMI. Pupils are equal and round. Normal sclera and conjunctiva. ENT: Oral mucosa is moist. Normal pharyngeal exam. Neck: Supple. No lymphadenopathy. Pulmonary: No respiratory distress. Clear to auscultation bilaterally. Cardiac: Regular rate and rhythm. Pulses are palpable and equal bilaterally. No lower extremity cyanosis or edema. Skin: Warm and dry. No rashes. Abdomen: Soft, non-tender, non-protuberant. No guarding, rigidity, or rebound. Bowel sounds are normal. No organomegaly or masses noted. Back: Normal alignment. No CVA tenderness. Extremities: Symmetrical. Full range of motion intact. Neurological: Alert and oriented, appropriately interactive, no focal deficits. Psych: Cooperative. Appropriate mood and affect. Speech is evenly metered. Thoughts are logically construed. ED Course Vital Signs 08/16/20 16:57 Temperature 99.7 F H Pulse Rate 99 H Respiratory 20 Rate Blood Pressure 135/92 O2 Sat by Pulse 98 Oximetry ED Medical Decision Making - Medical Decision Making Differential diagnosis including but not limited to: pneumonia, influenza, viral upper respiratory infection, pleural effusion, sinusitis, pharyngitis On reevaluation, patient remains stable. She is afebrile, hemodynamically stable, well-hydrated, tolerating oral intake without difficulty. No hypoxia, no respiratory distress. Chest x-ray is negative. History and exam findings suggestive of viral upper respiratory infection; no clinical indication for further diagnostic work-up at this time. Patient will be discharged home with appropriate symptomatic treatment and referred to primary care provider for close outpatient follow-up. Patient has also been dealing with diffuse ongoing dental pain and she is scheduled to see her dentist tomorrow, but she is requesting prescription for analgesics. She will be given Magic Mouthwash in addition to the above medication with the understanding that definitive pain management must be arranged by her dentist. Patient expressed understanding and is agreeable to plan of care. Disease transmission precautions discussed. Strict return precautions provided. Repeat exam is unremarkable and benign. History, exam, diagnostic testing, and current condition do not suggest worrisome pathology to warrant further testing, continued ED treatment, admission, or surgical evaluation at this point. Given the low probability of a significant medical illness, it would be more likely to result in harm than benefit to perform further testing at this stage. Discussed findings, presumptive diagnosis, need for follow-up and specific signs/symptoms that should prompt immediate return to the emergency department. Instructions were explained in detail to the patient in addition to giving written discharge information. Patient expressed understanding and was given the opportunity to ask questions, all of which were satisfactorily answered prior to discharge home. Critical care attestation.: If time is entered above; I have spent that time in minutes in the direct care of this critically ill patient, excluding procedure time. ED Disposition Clinical Impression: Viral upper respiratory tract infection with cough, Chronic dental pain Disposition: TO HOME OR SELFCARE Is pt being admited?: No Does the pt Need Aspirin: No Condition: Stable Instructions: Viral Respiratory Infection Additional Instructions: Take Tylenol every 4 hours as needed for pain. Use Magic Mouthwash as needed for sore throat/dental pain. Take Bromfed as directed for cough/cold. Rest. Drink plenty of fluids. Wash hands frequently to prevent disease transmission. Do not share food or drinks with others. Continue your asthma medications as previously prescribed. Follow-up with primary care provider this week. Call tomorrow to schedule appointment. See referral information below. Return to the emergency department immediately for new or worsening symptoms. Prescriptions: Brompheniramine/Pseudoephed/Dm [Bromfed Dm Cough Syrup] 10 ml PO Q4H #1 bottle Nystas/Diphen/Xyl Visc/Mylanta [Magic Mouthwash] 30 ml MM Q4H #1 bottle Referrals: PRIMARY CAREMD [Primary Care Provider] - 3-5 Days [facility] [Outside] - 3-5 Days [facility] [Outside] - 3-5 Days [facility] [Outside] - 3-5 Days Time of Disposition: 18:18
[2020-08-16] MEDS ORDERED: ACETAMINOPHEN 500 MG TAB PO ONE (17:28)
--- NOTE | 2020-08-16 18:04 | XRay Report ---
CHEST PA AND LATERAL VIEWS INDICATION: cough; hx asthma. COMPARISON: 12/01/2020 FINDINGS: Support devices: None Heart: Normal and unchanged Lungs/Pleura: Prominent left cardiophrenic fat pad. No active disease. IMPRESSION: 1. No active disease and no interval change. Signer Name: Aries Jackson MD Signed: 08/16/2020 6:00 PM Workstation Name: [id number]
== END 2020-08-16 18:45 | disposition home or self-care (01) ==
LOC: ED 14:36
DX: J06.9 Acute upper respiratory infection, unspecified (principal); B97.89 Other viral agents as the cause of diseases classified elsewhere; R05 Cough; K08.89 Other specified disorders of teeth and supporting structures; K21.9 Gastro-esophageal reflux disease without esophagitis; F32.9 Major depressive disorder, single episode, unspecified; J45.909 Unspecified asthma, uncomplicated; F17.200 Nicotine dependence, unspecified, uncomplicated; Z90.49 Acquired absence of other specified parts of digestive tract; Z90.89 Acquired absence of other organs; Z79.2 Long term (current) use of antibiotics; Z79.899 Other long term (current) drug therapy; Z88.0 Allergy status to penicillin; Z88.2 Allergy status to sulfonamides; Z88.8 Allergy status to other drugs, medicaments and biological substances
CPT/HCPCS: 71046

== ENCOUNTER 2020-09-21 13:29 | Emergency (ER) | payer MEDICAID ==
[2020-09-21 13:40] VITALS: BP 135/87
--- NOTE | 2020-09-21 16:36 | Emergency Department Report ---
ED General Adult HPI - General Chief complaint: Dental/Oral Stated complaint: TOOTHPAIN Time Seen by Provider: 09/21/20 16:28 Source: patient Mode of arrival: Ambulatory Limitations: No Limitations - History of Present Illness Initial comments: 35-year-old female patient presents to the emergency department with complaints of poor dentition and chronic dental pain for 2 months. Patient was already evaluated by a dentist for this issue. She was already prescribed antibiotics but did not take them. Patient was supposed to follow-up with the dentist but has not called the office to reschedule. States that she "doesn't want to go back because he was a [d] and so I came here instead." Symptoms are unchanged today. Denies fever, chills, dysphagia, hoarseness, facial swelling, purulent drainage. Denies all other complaints at this time. Severity scale (0 -10): 8 - Related Data Home Medications Medication Instructions Recorded Confirmed Last Taken Loratadine (Nf) [Claritin (Nf)] 10 mg PO QDAY 05/17/13 10/03/14 05/30/13 10 MG Nortriptyline (Nf) [Pamelor (Nf)] 75 mg PO QHS 05/17/13 10/03/14 05/30/13 75 MG Previous Rx's Medication Instructions Recorded Last Taken Type Acetaminophen/Codeine [Tylenol #3] 1 tab PO Q6H PRN #15 tab 10/04/14 Unknown Rx Tramadol HCl [traMADol] 50 mg PO Q8HR #15 tablet 10/04/14 Unknown Rx Albuterol Sulfate [Ventolin HFA] 2 puff IH Q4H PRN #1 hfa.aer.ad 07/16/16 Unknown Rx traMADoL [Ultram] 50 mg PO Q6HR PRN #10 tablet 10/09/18 Unknown Rx Acetaminophen [Tylenol] 650 mg PO Q8H PRN #10 capsule 01/30/19 Unknown Rx Chlorhexidine Mouthwash [Peridex] 15 ml MM BID #1 bottle 01/30/19 Unknown Rx Clindamycin [Clindamycin CAP] 300 mg PO Q8H #21 cap 01/30/19 Unknown Rx Azithromycin [Zithromax Z-DENNYS] 250 mg PO DAILY 5 Days #6 tab 03/15/19 Unknown Rx Inhaler, Assist Devices [Space 1 each MC ONCE PRN #1 spacer 03/15/19 Unknown Rx Chamber Plus] Prednisone [predniSONE 10 mg 10 mg PO .TAPER #1 tab.ds.pk 03/15/19 Unknown Rx (6-Day Pack, 21 Tabs)] guaiFENesin/CODEINE [Robitussin AC] 5 ml PO QHS PRN #50 ml 03/15/19 Unknown Rx guaiFENesin/CODEINE [Robitussin AC] 5 ml PO Q6HR PRN #100 oral.liqd 05/01/19 Unknown Rx Albuterol Mdi (or & Nicu Only) 2 puff IH QID PRN #1 inhalation 01/23/20 Unknown Rx [ProAir HFA Inhaler] Benzonatate [Tessalon Perles] 100 mg PO Q8HR #30 capsule 01/23/20 Unknown Rx Cetirizine HCl [Zyrtec 10mg tab] 10 mg PO DAILY 10 Days #30 tablet 01/23/20 Unknown Rx DOXYCYCLINE Hyclate [Vibramycin 100 mg PO Q12HR #20 capsule 01/23/20 Unknown Rx CAP] predniSONE [Deltasone] 40 mg PO QDAY #12 tab 01/23/20 Unknown Rx Clindamycin [Clindamycin CAP] 450 mg PO Q8HR 7 Days capsule 07/25/20 Unknown Rx Nystas/Diphen/Xyl Visc/Mylanta 30 ml PO Q4H PRN #1 bottle 07/25/20 Unknown Rx [Magic Mouthwash] Baclofen 20 mg PO Q8H PRN #21 tablet 08/02/20 Unknown Rx Famotidine [Pepcid] 20 mg PO BID #60 tablet 08/02/20 Unknown Rx Ondansetron [Zofran Odt] 4 mg PO Q8HR PRN #20 tab.rapdis 08/02/20 Unknown Rx Brompheniramine/Pseudoephed/Dm 10 ml PO Q4H #1 bottle 08/16/20 Unknown Rx [Bromfed Dm Cough Syrup] Nystas/Diphen/Xyl Visc/Mylanta 30 ml MM Q4H #1 bottle 08/16/20 Unknown Rx [Magic Mouthwash] Chlorhexidine Mouthwash [Peridex] 15 ml MM BID #1 bottle 09/21/20 Unknown Rx Allergies Allergy/AdvReac Type Severity Reaction Status Date / Time Penicillins Allergy Rash Verified 08/16/20 16:58 Sulfa (Sulfonamide Allergy Rash Verified 08/16/20 16:58 Antibiotics) clindamycin AdvReac Vomiting Verified 09/21/20 13:40 ibuprofen [From Motrin] AdvReac Swelling Verified 08/16/20 16:58 ED Review of Systems ROS: Stated complaint: TOOTHPAIN Other details as noted in HPI Other: GENERAL: Negative for fever. ENT: Positive for dental pain. CARDIOVASCULAR: Negative for chest pain. PULMONARY: Negative for shortness of breath. GASTROINTESTINAL: Negative for abdominal pain. MUSCULOSKELETAL: Negative for back pain. NEUROLOGICAL: Negative for headache. INTEGUMENTARY: Negative for rash. ED Past Medical Hx - Past Medical History Previous Medical History?: Yes Hx GERD: Yes Hx Seizures: No Hx Psychiatric Treatment: Yes (DEPRESSION) Hx Asthma: Yes Additional medical history: H. pylori - Surgical History Past Surgical History?: Yes Hx Cholecystectomy: Yes Additional Surgical History: hemorrhoidectomy - Social History Smoking Status: Current Every Day Smoker Substance Use Type: None - Medications Home Medications: Home Medications Medication Instructions Recorded Confirmed Last Taken Type Loratadine (Nf) [Claritin (Nf)] 10 mg PO QDAY 05/17/13 10/03/14 05/30/13 History 10 MG Nortriptyline (Nf) [Pamelor (Nf)] 75 mg PO QHS 05/17/13 10/03/14 05/30/13 History 75 MG Acetaminophen/Codeine [Tylenol #3] 1 tab PO Q6H PRN #15 tab 10/04/14 Unknown Rx Tramadol HCl [traMADol] 50 mg PO Q8HR #15 tablet 10/04/14 Unknown Rx Albuterol Sulfate [Ventolin HFA] 2 puff IH Q4H PRN #1 hfa.aer.ad 07/16/16 Unknown Rx traMADoL [Ultram] 50 mg PO Q6HR PRN #10 tablet 10/09/18 Unknown Rx Acetaminophen [Tylenol] 650 mg PO Q8H PRN #10 capsule 01/30/19 Unknown Rx Chlorhexidine Mouthwash [Peridex] 15 ml MM BID #1 bottle 01/30/19 Unknown Rx Clindamycin [Clindamycin CAP] 300 mg PO Q8H #21 cap 01/30/19 Unknown Rx Azithromycin [Zithromax Z-DENNYS] 250 mg PO DAILY 5 Days #6 tab 03/15/19 Unknown Rx Inhaler, Assist Devices [Space 1 each MC ONCE PRN #1 spacer 03/15/19 Unknown Rx Chamber Plus] Prednisone [predniSONE 10 mg 10 mg PO .TAPER #1 tab.ds.pk 03/15/19 Unknown Rx (6-Day Pack, 21 Tabs)] guaiFENesin/CODEINE [Robitussin AC] 5 ml PO QHS PRN #50 ml 03/15/19 Unknown Rx guaiFENesin/CODEINE [Robitussin AC] 5 ml PO Q6HR PRN #100 oral.liqd 05/01/19 Unknown Rx Albuterol Mdi (or & Nicu Only) 2 puff IH QID PRN #1 inhalation 01/23/20 Unknown Rx [ProAir HFA Inhaler] Benzonatate [Tessalon Perles] 100 mg PO Q8HR #30 capsule 01/23/20 Unknown Rx Cetirizine HCl [Zyrtec 10mg tab] 10 mg PO DAILY 10 Days #30 tablet 01/23/20 Unknown Rx DOXYCYCLINE Hyclate [Vibramycin 100 mg PO Q12HR #20 capsule 01/23/20 Unknown Rx CAP] predniSONE [Deltasone] 40 mg PO QDAY #12 tab 01/23/20 Unknown Rx Clindamycin [Clindamycin CAP] 450 mg PO Q8HR 7 Days capsule 07/25/20 Unknown Rx Nystas/Diphen/Xyl Visc/Mylanta 30 ml PO Q4H PRN #1 bottle 07/25/20 Unknown Rx [Magic Mouthwash] Baclofen 20 mg PO Q8H PRN #21 tablet 08/02/20 Unknown Rx Famotidine [Pepcid] 20 mg PO BID #60 tablet 08/02/20 Unknown Rx Ondansetron [Zofran Odt] 4 mg PO Q8HR PRN #20 tab.rapdis 08/02/20 Unknown Rx Brompheniramine/Pseudoephed/Dm 10 ml PO Q4H #1 bottle 08/16/20 Unknown Rx [Bromfed Dm Cough Syrup] Nystas/Diphen/Xyl Visc/Mylanta 30 ml MM Q4H #1 bottle 08/16/20 Unknown Rx [Magic Mouthwash] Chlorhexidine Mouthwash [Peridex] 15 ml MM BID #1 bottle 09/21/20 Unknown Rx ED Physical Exam - General Limitations: No Limitations - Other Other exam information: General: Awake, appropriately interactive, no acute distress. ENT: Oral mucosa is moist. Diffuse dental caries with multiple missing teeth. There is no localized tenderness. There is no localized swelling. The gingiva appear normal. No fluctuance or evidence of periapical abscess. Sublingual, submental, and submandibular spaces all soft, without edema. No evidence for maxillary or buccal space abscess. No trismus. Patient is speaking in full sentences and handling secretions without difficulty. No trismus. Neck: Supple. Full range of motion intact. Cardiovascular: Normal peripheral perfusion. Pulmonary: No respiratory distress. Patient is speaking normally without use of accessory muscles. Skin: No apparent rashes or lesions. Neurological: No facial asymmetry. Speech is clear. Follows commands. Patient is alert and oriented. Musculoskeletal: Moves all four extremities spontaneously with normal range of motion. Psych: Cooperative. Appropriate mood and affect. ED Course Vital Signs 09/21/20 13:38 Temperature 98.4 F Pulse Rate 101 H Respiratory 18 Rate Blood Pressure 135/87 [Right] O2 Sat by Pulse 98 Oximetry ED Medical Decision Making - Medical Decision Making Differential diagnosis including but not limited to: dental abscess, Dinesh's angina, necrotizing gingivitis, dental caries Patient presents to the emergency department requesting antibiotics and pain medication for chronic dental issues. She has already been evaluated by a dentist. She did not fill her prescriptions and she has not since followed up with her dentist. She is afebrile, hemodynamically stable, no hypoxia, no respiratory distress, speaking and handling secretions without difficulty. Patient has poor dentition diffusely with multiple dental caries. No obvious bacterial infection identified. Patient has multiple antibiotic allergies; in the absence of signs to suggest acute infection, risks of oral antibiotic administration outweigh benefits. Patient will be discharged home with antiseptic mouthwash and instructed to reach back out to her dentist for continued care. Patient has also been provided with multiple dental referrals should she choose to establish care with another dentist. Patient specifically requested Hydrocodone prescription; it was explained to the patient that opiates are not indicated for chronic dental pain and she would need to consult her dentist for definitive management. BILLING/CODING: This patient encounter does not represent a certified medical emergency. Critical care attestation.: If time is entered above; I have spent that time in minutes in the direct care of this critically ill patient, excluding procedure time. ED Disposition Clinical Impression: Dental caries Disposition: DC- TO HOME OR SELFCARE Is pt being admited?: No Does the pt Need Aspirin: No Condition: Stable Instructions: Preventive Dental Care, Adult Additional Instructions: The emergency department does not treat chronic dental issues. You must follow-up with a dentist for definitive management. Call tomorrow to schedule an appointment. See referral information below. Return to the emergency department immediately for new or worsening symptoms. Prescriptions: Chlorhexidine Mouthwash [Peridex] 15 ml MM BID #1 bottle Referrals: [facility] [Outside] - 3-5 Days [facility] [Outside] - 3-5 Days Time of Disposition: 16:41
== END 2020-09-21 18:00 | disposition home or self-care (01) ==
LOC: ED 13:29
DX: K02.9 Dental caries, unspecified (principal); K21.9 Gastro-esophageal reflux disease without esophagitis; F32.9 Major depressive disorder, single episode, unspecified; J45.909 Unspecified asthma, uncomplicated; F17.200 Nicotine dependence, unspecified, uncomplicated; Z90.49 Acquired absence of other specified parts of digestive tract; Z98.890 Other specified postprocedural states; Z88.0 Allergy status to penicillin; Z88.2 Allergy status to sulfonamides; Z88.8 Allergy status to other drugs, medicaments and biological substances
CPT/HCPCS: 99281